=== PATIENT | female | born 1940 | race Hispanic/Latino ===

== ENCOUNTER → 2017-05-27 | Outpatient (CLI) | payer OTHER, MEDICARE ==
[~2017-05-27] MED LIST: BIOT10005 PO; CIPR-245 PO; ESCI20TA36 PO; METR500T4 PO; OMEP20TA25 PO; PRED5TAB PO; ROSU5TAB18 PO; TRAM-355 PO
== END | disposition home or self-care (01) ==
LOC: RAH 09:44
PROVIDERS: ATTEND Family Medicine
DX: Z12.31 Encounter for screening mammogram for malignant neoplasm of breast (principal)
CPT/HCPCS: 77067

== ENCOUNTER 2017-07-20 18:10 | Inpatient (IN) | payer OTHER, MEDICARE ==
[~2017-07-20] VITALS: Ht 157.5 cm; Wt 68.1 kg
[2017-07-20 18:37] LABS: BASOPHILS % (AUTO) 0.2 % (0.0-5.0); EOSINOPHILS % (AUTO) 0.2 % (0.0-8.0); HEMATOCRIT 43.5 % (36-48); MEAN CORPUSCULAR HEMOGLOBIN 31.7 pg (27.0-33.0); MEAN CORPUSCULAR HGB CONC 34.2 g/dL (32.0-36.0); MEAN CORPUSCULAR VOLUME 92.5 fL (79-99); MONOCYTES % (AUTO) 5.3 % (3.0-13.0); NEUTROPHILS % (AUTO) 86.3 % (40.0-77.0); NUCLEATED RED BLOOD CELLS 0.1 % (0.0-0.19); PLATELET COUNT (AUTO) 207 K/uL (130-400); RED CELL DISTRIBUTION WIDTH 12.7 % (11.0-15.5); WHITE BLOOD COUNT (AUTO) 13.2 K/uL (4.8-10.8)
[2017-07-20 18:46] LABS: POTASSIUM 4.3 mmol/L (3.5-5.1)
[2017-07-20] MEDS ORDERED: ONDANSETRON HCL 4 MG/2 ML VIAL ONE (18:47)
[2017-07-20] MEDS ORDERED: MORPHINE SULFATE 4 MG/1ML SYG ONE (18:47)
[2017-07-20 18:53] LABS: ALBUMIN 3.8 g/dL (3.5-5.0); BILIRUBIN,TOTAL 1.3 mg/dL (0.2-1.0); TOTAL PROTEIN, SERUM 7.4 g/dL (6.0-8.3)
[2017-07-20] MEDS ORDERED: KETOROLAC TROMETHAMINE 30MG/ML ONE (18:58)
[2017-07-20] MEDS ORDERED: IOPAMIDOL-370 75 ML VIAL IV ONE (19:16)
[2017-07-20 20:31] LABS: APPEARANCE,URINE Clear (CLEAR); BILIRUBIN,URINE Small (NEGATIVE); COLOR,URINE Dark Yellow (YELLOW); GLUCOSE, URINE (UA) 250 mg/dL (NEGATIVE); KETONES,URINE >=80 mg/dL (NEGATIVE); LEUKOCYTE ESTERASE ,URINE Small (NEGATIVE); NITRATE,URINE Negative (NEGATIVE); OCCULT BLOOD,URINE Negative (NEGATIVE); PROTEIN,URINE Trace (NEGATIVE)
[2017-07-20 20:42] LABS: BACTERIA,URINE None Seen /HPF (None Seen); MUCUS,URINE Moderate LPF (None Seen); RBC,URINE None Seen /HPF (0-1)
[2017-07-20] MEDS ORDERED: SODIUM CHLORIDE 0.9% 500ML 500 ML IV ONE (21:09)
[2017-07-20] MEDS ORDERED: ACETAMINOPHEN 325 MG TAB ONE (23:03)
[2017-07-21] MEDS ORDERED: ONDANSETRON HCL MDV 20ML 2 MG/ML VIAL IVP PRN (00:15)
[2017-07-21] MEDS ORDERED: GLUCAGON 1MG KIT 1 MG ML IM PRN (00:15)
[2017-07-21] MEDS ORDERED: DEXTROSE 50%-WATER 50 ML DISP.SYRIN IV PRN (00:15)
[2017-07-21] MEDS: SODIUM CHLORIDE 0.9% 1000ML 1,000 ML IV SCH ×2 (00:15→07:27)
[2017-07-21] MEDS ORDERED: LORAZEPAM 0.5 MG TABLET PO ONE (00:30)
[2017-07-21] MEDS ORDERED: LORAZEPAM 1 MG TABLET ONE (02:00)
[2017-07-21 05:01] LABS: BASOPHILS % (AUTO) 0.2 % (0.0-5.0); EOSINOPHILS % (AUTO) 0.8 % (0.0-8.0); HEMATOCRIT 39.5 % (36-48); LYMPHOCYTES % (AUTO) 17.2 % (21.0-51.0); MEAN CORPUSCULAR HEMOGLOBIN 32.8 pg (27.0-33.0); MEAN CORPUSCULAR HGB CONC 35.2 g/dL (32.0-36.0); MEAN CORPUSCULAR VOLUME 93.3 fL (79-99); MONOCYTES % (AUTO) 7.3 % (3.0-13.0); NEUTROPHILS % (AUTO) 74.5 % (40.0-77.0); PLATELET COUNT (AUTO) 194 K/uL (130-400); RED BLOOD CELL COUNT(AUTO) 4.23 MIL/uL (4.00-5.50); RED CELL DISTRIBUTION WIDTH 12.7 % (11.0-15.5); WHITE BLOOD COUNT (AUTO) 8.6 K/uL (4.8-10.8)
[2017-07-21 05:17] LABS: CREATININE 0.8 mg/dL (0.5-1.5); POTASSIUM 4.1 mmol/L (3.5-5.1)
[2017-07-21] MEDS ORDERED: MEROPENEM 500 MG VIAL ONE (05:52)
[2017-07-21] MEDS ORDERED: MEROPENEM 500MG+NS 50ML 50 ML IV SCH (06:00)
[2017-07-21] MEDS ORDERED: ENOXAPARIN SODIUM 40 MG/0.4 ML SYRINGE SQ ONE (07:21)
[2017-07-21] MEDS ORDERED: FAMOTIDINE 20MG TAB 20 MG TAB ONE (07:21)
[2017-07-21] MEDS: FAMOTIDINE 20MG TAB 20 MG TAB PO SCH (07:25)
[2017-07-21] MEDS: ENOXAPARIN SODIUM 40 MG/0.4 ML SYRINGE SQ SCH (07:26)
[2017-07-21] MEDS: INSULIN HUMULIN R 100 UNIT/ML 3ML SQ SCH ×4 (07:26→20:53)
[2017-07-21 07:50] VITALS: BP 117/61
[2017-07-21] MEDS ORDERED: ZOSYN 3.375GM+NS 50ML 50 ML IV SCH (10:15)
[2017-07-21] MEDS: KETOROLAC TROMETHAMINE 30MG/ML IM PRN ×3 (10:58→17:35)
[2017-07-21] MEDS ORDERED: KETOROLAC TROMETHAMINE 30MG/ML ONE (10:59)
[2017-07-21 14:20] VITALS: BP 105/55
[2017-07-21] MEDS ORDERED: LIDOCAINE HCL-MPF 1% 2ML VIAL IJ PRN (14:30)
[2017-07-21] MEDS ORDERED: POTASSIUM CHLORIDE 10% ELIXIR 20 MEQ/15 ML UDCUP PO PRN (14:30)
[2017-07-21] MEDS ORDERED: POTASSIUM CHLORIDE 20MEQ/100ML 100 ML IV PRN (14:30)
[2017-07-21] MEDS ORDERED: POTASSIUM CHLORIDE 20 MEQ ERTAB PO PRN (14:30)
[2017-07-21] MEDS ORDERED: ROSU5TAB11 PO (14:58)
[2017-07-21] MEDS ORDERED: PRED5TAB PO (14:58)
[2017-07-21] MEDS ORDERED: BIOT10005 PO (14:58)
[2017-07-21] MEDS ORDERED: TRAM-355 PO (14:58)
[2017-07-21] MEDS ORDERED: OMEP20TA25 PO (14:58)
[2017-07-21] MEDS ORDERED: ESCI20TA36 PO (14:58)
[2017-07-21] MEDS ORDERED: LEVOFLOXACIN 500 MG/D5W 100 ML 100 ML IV SCH (15:30)
[2017-07-21] MEDS ORDERED: LEVOFLOXACIN 500 MG/D5W 100 ML 100 ML ONE (15:52)
[2017-07-21 16:00] VITALS: BP 93/49
[2017-07-21] MEDS ORDERED: TRAMADOL /APAP 37.5MG/325MG TAB PO PRN (17:30)
[2017-07-21] MEDS: METRONIDAZOLE 500MG/100ML BAG 100 ML IV SCH (19:53)
[2017-07-21 20:00] VITALS: BP 104/64
[2017-07-21] MEDS ORDERED: ATORVASTATIN CALCIUM 10 MG TABLET PO SCH (21:00)
[2017-07-21] MEDS ORDERED: DIPHENHYDRAMINE HCL 25 MG CAPSULE ONE (22:21)
[2017-07-21] MEDS ORDERED: DIPHENHYDRAMINE HCL 25 MG CAPSULE PO SCH (22:30)
[2017-07-21 23:53] VITALS: BP 108/64
[2017-07-22] MEDS: SODIUM CHLORIDE 0.9% 1000ML 1,000 ML IV SCH (02:55)
[2017-07-22 04:00] VITALS: BP 102/56
[2017-07-22] MEDS: INSULIN HUMULIN R 100 UNIT/ML 3ML SQ SCH ×2 (05:55→11:30)
[2017-07-22 08:00] VITALS: BP 105/58
[2017-07-22] MEDS ORDERED: PANTOPRAZOLE SODIUM 40 MG TABLET.DR PO SCH (08:00)
[2017-07-22] MEDS ORDERED: CITALOPRAM 20 MG TABLET PO SCH (09:00)
[2017-07-22] MEDS ORDERED: PREDNISONE 5 MG TABLET PO SCH (09:00)
[2017-07-22] MEDS ORDERED: BIOTIN 10000 MCG PO SCH (09:00)
[2017-07-22] MEDS: METRONIDAZOLE 500MG/100ML BAG 100 ML IV SCH (09:23)
[2017-07-22] MEDS: ENOXAPARIN SODIUM 40 MG/0.4 ML SYRINGE SQ SCH (09:24)
[2017-07-22] MEDS: FAMOTIDINE 20MG TAB 20 MG TAB PO SCH (09:26)
[2017-07-22 11:48] VITALS: BP 103/63
[2017-07-22] MEDS ORDERED: CIPR-245 PO (14:20)
[2017-07-22] MEDS ORDERED: METR500T4 PO (14:21)
== END 2017-07-22 14:50 | disposition home or self-care (01) | DRG 392 ==
LOC: EDH 18:10 → EDHIP 21:39 → 3BH 07-21 14:13
PROVIDERS: ADMIT Internal Medicine Nephrology; ATTEND Internal Medicine Nephrology
DX: K57.92 Diverticulitis of intestine, part unspecified, without perforation or abscess without bleeding (principal); M32.9 Systemic lupus erythematosus, unspecified; E11.9 Type 2 diabetes mellitus without complications; Z79.4 Long term (current) use of insulin
CPT/HCPCS: 36415; 74177; 80048; 80053; 81001; 82948; 83690; 84478; 85025; J1650; J1885; J1956; J2185; J2270; J2405; J3490; J7040; J7512; Q0163; Q9967

== ENCOUNTER 2019-08-13 11:52 | Observation (INO) | payer OTHER, MEDICARE ==
[~2019-08-13] VITALS: Ht 152.4 cm; Wt 69.2 kg
[~2019-08-13 11:52] MED LIST changes: +METR-172 PO; -METR500T4 PO; +ROSU5TAB12 PO; -ROSU5TAB18 PO
[2019-08-13 12:29] LABS: BASOPHILS % (AUTO) 0.2 % (0.0-5.0); EOSINOPHILS % (AUTO) 2.3 % (0.0-8.0); LYMPHOCYTES % (AUTO) 30.4 % (21.0-51.0); MEAN CORPUSCULAR HGB CONC 33.3 g/dL (32.0-36.0); MEAN CORPUSCULAR VOLUME 92.9 fL (79-99); MONOCYTES % (AUTO) 8.6 % (3.0-13.0); PLATELET COUNT (AUTO) 148 K/uL (130-400); RED BLOOD CELL COUNT(AUTO) 4.52 MIL/uL (4.00-5.50); RED CELL DISTRIBUTION WIDTH 12.3 % (11.0-15.5); WHITE BLOOD COUNT (AUTO) 5.6 K/uL (4.8-10.8)
[2019-08-13 12:36] LABS: CREATININE 0.9 mg/dL (0.5-1.5); POTASSIUM 3.4 mmol/L (3.5-5.1)
[2019-08-13 12:37] LABS: INR 0.92 (0.85-1.15); PARTIAL THROMBOPLASTIN TIME 24.3 SEC (26.3-35.5)
[2019-08-13 12:43] LABS: ALBUMIN 3.6 g/dL (3.5-5.0); BILIRUBIN,TOTAL 0.8 mg/dL (0.2-1.0); TOTAL PROTEIN, SERUM 6.5 g/dL (6.0-8.3)
[2019-08-13 13:04] LABS: APPEARANCE,URINE Clear (CLEAR); BILIRUBIN,URINE Small (NEGATIVE); COLOR,URINE Dark Yellow (YELLOW); GLUCOSE, URINE (UA) Negative (NEGATIVE); KETONES,URINE Trace mg/dL (NEGATIVE); LEUKOCYTE ESTERASE ,URINE Small (NEGATIVE); NITRATE,URINE Negative (NEGATIVE); OCCULT BLOOD,URINE Negative (NEGATIVE); PH,URINE 5.5 (5.0-8.0); PROTEIN,URINE Trace mg/dL (NEGATIVE)
[2019-08-13 13:19] LABS: BACTERIA,URINE Rare /HPF (None Seen); RBC,URINE 0-1 /HPF (0-1); SQUAMOUS EPITHELIAL CELL,UR Rare /HPF (0-2)
[2019-08-13] MEDS ORDERED: ACETAMINOPHEN 325 MG TAB ONE (13:24)
[2019-08-13] MEDS ORDERED: IOHEXOL-350 75 ML VIAL IV ONE (13:33)
[2019-08-13] MEDS ORDERED: ZOSYN 3.375GM+NS 50ML 50 ML IV ONE (14:56)
[2019-08-13] MEDS ORDERED: SODIUM CHLORIDE 0.9% 100 ML IV ONE (17:11)
[2019-08-13] MEDS ORDERED: CEFTRIAXONE SODIUM 1 GM ONE (17:11)
[2019-08-13] MEDS ORDERED: DEXTROSE 50%-WATER 50 ML DISP.SYRIN IV PRN (17:45)
[2019-08-13] MEDS ORDERED: ONDANSETRON HCL 4 MG/2 ML VIAL IVP PRN (17:45)
[2019-08-13] MEDS ORDERED: GLUCAGON 1MG KIT 1 MG ML IM PRN (17:45)
[2019-08-13] MEDS ORDERED: CEFTRIAXONE SODIUM 1 GM IVP SCH (17:45)
[2019-08-13] MEDS ORDERED: MORPHINE SULFATE 4 MG/1ML SYG IVP PRN (17:45)
[2019-08-13 18:17] VITALS: BP 109/64
[2019-08-13] MEDS ORDERED: GABA-533 PO (18:23)
[2019-08-13] MEDS ORDERED: HYDR200T4 PO (18:32)
[2019-08-13] MEDS ORDERED: MIRT7.5T11 PO (18:33)
[2019-08-13 19:24] VITALS: BP 103/55
[2019-08-13] MEDS: INSULIN R PO SS1 SQ SCH (21:00)
--- NOTE | 2019-08-13 21:00 | NUR ---
ASSESS SHIFT ASSESSMENT DONE, PLEASE REFER TO CHART. PT ASKS FOR COFFEE, CLAIMS OF HAVING A HEADACHE. PROVIDED REQUESTED. WILL RE-ASSESS PT. Addendum: 08/14/19 at 0321 by KOJO TAYLOR RN RN Amended: Links added.
--- NOTE | 2019-08-13 22:50 | NUR ---
IVF PT IS BACK IN BED FROM RADIOLOGY. VQ SCAN DONE. STARTED ON IVF ON NS REGULATED AT 75CC/HR. PT CLAIMS OF HEADACHE WORSENING. REFUSED MORPHINE DOSE SHE CLAIMS SHE GETS TOVA WITH MORPHINE. CHIEF OPTOMETRY SERVICE ASSURED TO CALL MD FOR MEDS.
[2019-08-13] MEDS: SODIUM CHLORIDE 0.9% 1000ML 1,000 ML IV SCH (22:52)
[2019-08-13 23:14] VITALS: BP 112/63
--- NOTE | 2019-08-13 23:15 | NUR ---
[facility] PAGED MS DAY [facility] LEAD MAINTENANCE TECHNICIAN FOR [facility], VIA ANSWERING SERVICE. [facility] CALLED BACK AND REFERRED PT'S H/A. NEW MED ORDER GIVEN, PLEASE REFER TO CPOE. HOME MEDS GIVEN FROM PT'S OWN MEDS AT THIS TIME. MEDS STILL BEING VERIFIED BY RX. WILL RE-ASSESS PT.
[2019-08-13] MEDS ORDERED: ACETAMINOPHEN 325 MG TAB PO PRN (23:30)
[2019-08-13] MEDS ORDERED: TRAMADOL /APAP 37.5MG/325MG TAB PO PRN (23:30)
--- NOTE | 2019-08-14 01:50 | NUR ---
ROUNDS PT RESTING WELL. NO DISTRESS NOTED. KEPT COMFORTABLE IN BED. CALL LIGHT WITHIN REACH. WILL MONITOR PT.
[2019-08-14 03:55] VITALS: BP 94/54
[2019-08-14 05:09] LABS: BASOPHILS % (AUTO) 0.4 % (0.0-5.0); EOSINOPHILS % (AUTO) 3.1 % (0.0-8.0); HEMATOCRIT 36.4 % (36-48); LYMPHOCYTES % (AUTO) 32.7 % (21.0-51.0); MEAN CORPUSCULAR HEMOGLOBIN 31.1 pg (27.0-33.0); MEAN CORPUSCULAR HGB CONC 33.5 g/dL (32.0-36.0); MEAN CORPUSCULAR VOLUME 92.9 fL (79-99); MONOCYTES % (AUTO) 9.4 % (3.0-13.0); PLATELET COUNT (AUTO) 145 K/uL (130-400); RED BLOOD CELL COUNT(AUTO) 3.92 MIL/uL (4.00-5.50); RED CELL DISTRIBUTION WIDTH 12.3 % (11.0-15.5); WHITE BLOOD COUNT (AUTO) 5.1 K/uL (4.8-10.8)
[2019-08-14 05:12] LABS: HEMOGLOBIN A1C 7.9 % (4.0-6.0)
[2019-08-14 05:24] LABS: INR 0.93 (0.85-1.15); PARTIAL THROMBOPLASTIN TIME 25.4 SEC (26.3-35.5); PROTHROMBIN TIME 10.1 SEC (9.6-11.6)
[2019-08-14 05:28] LABS: CREATININE 0.9 mg/dL (0.5-1.5); POTASSIUM 3.6 mmol/L (3.5-5.1)
--- NOTE | 2019-08-14 05:30 | NUR ---
SHOWER PT REQUESTED TO SHOWER. PT DENIES ANY PAINS NOR DISCOMFORT AT THIS TIME. SALINE LOCKED PT. PCP ASSISTED PT TO SHOWER, TOLERATED ACTIVITY WELL.
[2019-08-14] MEDS: INSULIN R PO SS1 SQ SCH ×3 (05:57→16:25)
[2019-08-14 08:36] VITALS: BP 95/55
[2019-08-14] MEDS ORDERED: CITALOPRAM 20 MG TABLET PO SCH (09:00)
[2019-08-14] MEDS ORDERED: HYDROXYCHLOROQUINE SULFATE 200 MG TAB PO SCH (09:00)
--- NOTE | 2019-08-14 11:19 | NUR ---
CHART REVIEWED, [facility] UPLOADED, CONTACT DR. HENDERSON RE: CT RESULT/ DOCUMENTATION. CONTACTED TA PRIMARY NURSE RE NOTE THAT FROM [facility] THAT STATES TO START STEROIDS WHEN AVAILABLE. CM TO FOLLOW Addendum: 08/14/19 at 1122 by SONA BURNS RN CM Amended: Links added.
[2019-08-14] MEDS: SODIUM CHLORIDE 0.9% 1000ML 1,000 ML IV SCH (11:39)
--- NOTE | 2019-08-14 12:27 | NUR ---
DCP CM met with pt discussed dc plans. Pt is independent prior to admission, lives at home with spouse and son. Pt has a nebulizer machine. Denies any other equipments/services. Feels safe to go back home, son able to assist with transportation and needs as necesary. DC plan to home once stable. Addendum: 08/14/19 at 1229 by GAMAL LUI LVN CM Amended: Links added.
[2019-08-14] MEDS ORDERED: CIPR250S5 PO (15:50)
[2019-08-14 17:15] VITALS: BP 110/63
--- NOTE | 2019-08-14 17:15 | NUR ---
INSTRUCTIONS DISCHARGE INSTRUCTIONS GIVEN TO PATIENT USING TEACH BACK. NEW ANTIBIOTIC ELECTRONICALLY SENT TO PATIENT'S PREFERRED PHARMACY BY MD. ALL PRINTED INFORMATION AND MD INSTRUCTIONS PLACED IN DISCHARGE PACKET. IV WAS REMOVED WITH TIP INTACT. DIRECT PRESSURE WAS APPLIED UNTIL BLEEDING CONTROLLED THEN SITE COVERED WITH GAUZE AND SECURED WITH A BAND-AID. F/U APPOINTMENT WITH [facility] WAS MADE, BUT AN APPOINTMENT WITH HER PRIMARY WAS NOT MADE BY NURSE D/T TO NO ONE ANSWERING THE PHONE. PATIENT STATES THAT SHE WILL CALL THE OFFICE IN THE MORNING TO SET UP HER OWN APPOINTMENT. NO QUESTIONS OR CONCERNS VOICED. PENDING RIDE HOME.
[2019-08-14] MEDS ORDERED: MIRTAZAPINE 15 MG TABLET PO SCH (21:00)
[2019-08-14] MEDS ORDERED: GABAPENTIN 100 MG CAPSULE PO SCH (21:00)
== END 2019-08-14 17:25 | disposition home or self-care (01) ==
LOC: EDH 11:52 → EDHIP 16:39 → 3CH 17:56
PROVIDERS: ADMIT Internal Medicine Pulmonary Disease; ATTEND Internal Medicine Pulmonary Disease
DX: E86.9 Volume depletion, unspecified (principal); N39.0 Urinary tract infection, site not specified; E11.9 Type 2 diabetes mellitus without complications; E78.00 Pure hypercholesterolemia, unspecified; L93.0 Discoid lupus erythematosus; R06.02 Shortness of breath; I10 Essential (primary) hypertension; Z79.4 Long term (current) use of insulin; Z90.49 Acquired absence of other specified parts of digestive tract; Z87.891 Personal history of nicotine dependence
CPT/HCPCS: 36415 ×2; 71045; 71250; 74177; 78582; 80048; 80053; 80061; 81001; 82550; 82948 ×4; 83036; 83690; 83735; 83880; 84484; 85025 ×2; 85610 ×2; 85730 ×2; 87040 ×2; 87077; 87088; 87186; 87804 ×2; 93005; 93306; 93356; 93970; 96360; 96361; 99285; A9540; A9558; G0378 ×9; J0696; J2270; J2543; J7030; Q9967

== ENCOUNTER 2019-08-22 16:52 | Emergency (ER) | payer OTHER, MEDICARE ==
[~2019-08-22 16:52] MED LIST changes: -BIOT10005 PO; -CIPR-245 PO; +CIPR250S5 PO; +GABA-533 PO; +HYDR200T4 PO; -METR-172 PO; +MIRT7.5T11 PO; -OMEP20TA25 PO; -PRED5TAB PO; -ROSU5TAB12 PO
[2019-08-22 17:42] LABS: BASOPHILS % (AUTO) 0.6 % (0.0-5.0); EOSINOPHILS % (AUTO) 3.9 % (0.0-8.0); HEMATOCRIT 38.6 % (36-48); LYMPHOCYTES % (AUTO) 33.5 % (21.0-51.0); MEAN CORPUSCULAR HEMOGLOBIN 30.7 pg (27.0-33.0); MEAN CORPUSCULAR HGB CONC 33.4 g/dL (32.0-36.0); MEAN CORPUSCULAR VOLUME 91.9 fL (79-99); MONOCYTES % (AUTO) 9.8 % (3.0-13.0); PLATELET COUNT (AUTO) 180 K/uL (130-400); RED CELL DISTRIBUTION WIDTH 12.2 % (11.0-15.5); WHITE BLOOD COUNT (AUTO) 5.1 K/uL (4.8-10.8)
[2019-08-22 17:54] LABS: CREATININE 0.8 mg/dL (0.5-1.5); POTASSIUM 3.7 mmol/L (3.5-5.1)
== END 2019-08-22 20:18 | disposition home or self-care (01) ==
LOC: EDH 16:52
DX: S00.03XA Contusion of scalp, initial encounter (principal); E11.9 Type 2 diabetes mellitus without complications; E78.00 Pure hypercholesterolemia, unspecified; M32.9 Systemic lupus erythematosus, unspecified; Z90.49 Acquired absence of other specified parts of digestive tract; W18.09XA Striking against other object with subsequent fall, initial encounter; Y93.89 Activity, other specified; Y92.89 Other specified places as the place of occurrence of the external cause; Y99.8 Other external cause status
CPT/HCPCS: 36415; 70450; 80048; 85025; 93005

== ENCOUNTER → 2020-09-04 | Outpatient (CLI) | payer OTHER, MEDICARE ==
[~2020-09-04] MED LIST changes: -ESCI20TA36 PO; +ESCI20TA38 PO
== END | disposition home or self-care (01) ==
LOC: OIH 11:29
PROVIDERS: ATTEND Internal Medicine
DX: M47.816 Spondylosis without myelopathy or radiculopathy, lumbar region (principal); M51.37 Other intervertebral disc degeneration, lumbosacral region; M48.07 Spinal stenosis, lumbosacral region
CPT/HCPCS: 72100

== ENCOUNTER 2021-02-10 08:00 | Inpatient (IN) | payer OTHER, MEDICARE ==
[~2021-02-10] VITALS: Ht 157.5 cm; Wt 45.4 kg
[2021-02-11 10:51] LABS: BASOPHILS % (AUTO) 0.4 % (0.0-5.0); EOSINOPHILS % (AUTO) 4.9 % (0.0-8.0); HEMATOCRIT 38.8 % (36-48); MEAN CORPUSCULAR HEMOGLOBIN 30.6 pg (27.0-33.0); MEAN CORPUSCULAR HGB CONC 33.2 g/dL (32.0-36.0); MEAN CORPUSCULAR VOLUME 92.2 fL (79-99); MONOCYTES % (AUTO) 7.1 % (3.0-13.0); NEUTROPHILS % (AUTO) 58.2 % (40.0-77.0); PLATELET COUNT (AUTO) 186 K/uL (130-400); RED BLOOD CELL COUNT(AUTO) 4.21 MIL/uL (4.00-5.50); RED CELL DISTRIBUTION WIDTH 11.6 % (11.0-15.5); WHITE BLOOD COUNT (AUTO) 5.7 K/uL (4.8-10.8)
[2021-02-11 10:58] LABS: ABG BASE EXCESS -1.9 mmol/L (-2.0-3.0); ABG HCO3 22.4 mmol/L (21.0-28.0); ABG PCO2 37 mmHg (32-45)
[2021-02-11 11:01] LABS: CREATININE 0.7 mg/dL (0.5-1.5); POTASSIUM 3.7 mmol/L (3.5-5.1)
[2021-02-11 11:17] VITALS: BP 158/77
[2021-02-11 11:51] LABS: INR 0.99 (0.85-1.15); PROTHROMBIN TIME 10.8 SEC (9.6-11.6)
[2021-02-11 11:52] LABS: PARTIAL THROMBOPLASTIN TIME 27.6 SEC (26.3-35.5)
[2021-02-11] MEDS ORDERED: BACL10TA PO (13:39)
[2021-02-11] MEDS ORDERED: MIDO10TA PO (13:39)
[2021-02-11] MEDS ORDERED: RIFA300C4 PO (13:39)
[2021-02-11] MEDS ORDERED: ACET-2743 PO (13:39)
[2021-02-11] MEDS ORDERED: PRED5TAB PO (13:39)
[2021-02-11] MEDS ORDERED: PREG75 PO (13:39)
[2021-02-11] MEDS ORDERED: DICL75TA5 PO (13:39)
[2021-02-11] MEDS ORDERED: LEVO500T90 PO (13:39)
[2021-02-11] MEDS ORDERED: HYDR200T4 PO (13:39)
[2021-02-11] MEDS ORDERED: ESCI20TA38 PO (13:39)
[2021-02-11] MEDS ORDERED: AZIT500T4 PO (13:39)
[2021-02-11] MEDS ORDERED: FLUD0.1T2 PO (13:39)
[2021-02-11] MEDS ORDERED: ROSU5TAB12 PO (13:39)
[2021-02-11] MEDS ORDERED: DULA0.75 SQ (13:39)
[2021-02-11] MEDS ORDERED: TRAM50TA4 PO (13:39)
[2021-02-11] MEDS ORDERED: MIRT7.5T11 PO (13:39)
[2021-02-11] MEDS ORDERED: PANT40TA54 PO (13:39)
[2021-02-11] MEDS ORDERED: ALPR0.255 PO (13:39)
[2021-02-16] VITALS (14 sets, daily range): BP systolic 86–142; BP diastolic 38–66
[2021-02-16] MEDS ORDERED: CEFAZOLIN SODIUM 1 GM VIAL ONE ×2 (06:46→09:54)
[2021-02-16] MEDS ORDERED: LACTATED RINGERS 1000ML 1,000 ML IV ONE (06:46)
[2021-02-16] MEDS ORDERED: 0.9%NACL 1000ML 1,000 ML IV ONE (07:12)
[2021-02-16] MEDS ORDERED: HEPARIN 10,000 UNIT/10ML (1,000 UNIT/ML) VIAL ONE (08:33)
[2021-02-16] MEDS ORDERED: LIDOCAINE PF 100MG/5ML (2%) SYRINGE 5ML ONE (08:33)
[2021-02-16] MEDS ORDERED: NOREPINEPHRINE BITARTRATE 1 MG/1 ML ML IV ONE ×2 (08:33→10:17)
[2021-02-16] MEDS ORDERED: AMINOCAPROIC ACID 5,000MG VIAL ONE (08:33)
[2021-02-16] MEDS ORDERED: ESMOLOL HCL 10 MG/ML 10 ML VIAL ONE (08:33)
[2021-02-16] MEDS ORDERED: PROTAMINE SULFATE 10 MG/ML 25ML VIAL IV ONE (08:33)
[2021-02-16] MEDS ORDERED: EPINEPHRINE PF 1MG AMP ONE (08:33)
[2021-02-16] MEDS ORDERED: ROCURONIUM 10MG/1ML SYR 10 MG/ML ML ONE (08:34)
[2021-02-16] MEDS ORDERED: FENTANYL CITRATE PF 50 MCG/1 ML 20ML VIAL IJ ONE (08:34)
[2021-02-16] MEDS ORDERED: PROPOFOL 10 MG/ML 20ML VIAL IV ONE (08:34)
[2021-02-16] MEDS ORDERED: MIDAZOLAM HCL 1 MG/ML 2ML VIAL ONE (08:34)
[2021-02-16 09:27] LABS: ABG BASE EXCESS -0.7 mmol/L (-2.0-3.0); ABG HCO3 23.1 mmol/L (21.0-28.0); ABG OXYGEN SATURATION 99.4 % (95.0-99.0); ABG PCO2 35 mmHg (32-45)
[2021-02-16] MEDS ORDERED: EPHEDRINE SULFATE 50 MG/ML AMPULE ONE (09:48)
[2021-02-16] MEDS ORDERED: LIDOCAINE HCL 1% 20 ML VIAL ONE (09:57)
[2021-02-16] MEDS ORDERED: BUPIVACAINE/PF 0.5% 30ML VIAL ONE (09:57)
[2021-02-16] MEDS ORDERED: DEXTROSE 50%-WATER 50 ML DISP.SYRIN IV PRN (10:00)
[2021-02-16] MEDS ORDERED: GLUCAGON 1MG KIT 1 MG ML IM PRN (10:00)
[2021-02-16] MEDS ORDERED: MORPHINE 2 MG SYG IVP PRN (10:00)
[2021-02-16] MEDS ORDERED: DEXAMETHASONE SOD PHOSPHATE 10MG/ML 1ML VIAL ONE (10:44)
[2021-02-16] MEDS ORDERED: ALBUTEROL INHALER 90MCG/INH IH ONE (10:45)
[2021-02-16] MEDS ORDERED: GLYCOPYRROLATE 1 MG/5 ML SYRINGE ONE (10:52)
[2021-02-16] MEDS ORDERED: NEOSTIGMINE 5MG/5ML SYR IV ONE (10:52)
[2021-02-16] MEDS: MORPHINE 2 MG SYG IVP PRN ×4 (11:26→23:28)
[2021-02-16] MEDS: INSULIN HUMULIN R 100 UNIT/ML 3ML SQ SCH ×3 (11:30→21:00)
[2021-02-16] MEDS ORDERED: ONDANSETRON 4MG INJ ONE (11:44)
[2021-02-16] MEDS: TRAMADOL HCL 50 MG TABLET PO PRN (11:59)
[2021-02-16] MEDS: FLUDROCORTISONE ACETATE 0.1 MG TABLET PO SCH (12:00)
[2021-02-16 12:12] LABS: HEMATOCRIT 34.6 % (36-48); MEAN CORPUSCULAR HEMOGLOBIN 30.4 pg (27.0-33.0); MEAN CORPUSCULAR HGB CONC 32.4 g/dL (32.0-36.0); MEAN CORPUSCULAR VOLUME 93.8 fL (79-99); RED BLOOD CELL COUNT(AUTO) 3.69 MIL/uL (4.00-5.50); RED CELL DISTRIBUTION WIDTH 11.6 % (11.0-15.5); WHITE BLOOD COUNT (AUTO) 10.8 K/uL (4.8-10.8)
[2021-02-16 12:26] LABS: CREATININE 0.8 mg/dL (0.5-1.5); POTASSIUM 3.6 mmol/L (3.5-5.1)
[2021-02-16] MEDS: KETOROLAC 15MG/ML VIAL (15MG/ML) IV PRN ×3 (12:51→21:35)
[2021-02-16] MEDS ORDERED: 0.9% NACL 500ML IV.SOLN 500 ML IV SCH (13:00)
[2021-02-16] MEDS ORDERED: ALBUMIN (HUMAN) 5% 250 ML IV SCH (13:00)
[2021-02-16] MEDS: MIDODRINE HCL 5 MG TABLET PO SCH ×2 (16:06→20:04)
[2021-02-16] MEDS: ATORVASTATIN 10 MG TABLET PO SCH (20:00)
[2021-02-16] MEDS: BACLOFEN 10 MG TABLET PO SCH (20:00)
[2021-02-16] MEDS: ALPRAZOLAM 0.25 MG TABLET PO SCH (20:00)
[2021-02-16] MEDS: HYDROXYCHLOROQUINE SULFATE 200 MG TAB PO SCH (20:00)
[2021-02-16] MEDS: PREDNISONE 5 MG TABLET PO SCH (20:00)
[2021-02-16] MEDS: PREGABALIN 75 MG CAPSULE PO SCH (20:00)
[2021-02-16] MEDS: CITALOPRAM 20 MG TABLET PO SCH (20:00)
[2021-02-16] MEDS: LEVOFLOXACIN 500 MG TABLET PO SCH (20:00)
[2021-02-16] MEDS: MIRTAZAPINE 15 MG TABLET PO SCH (20:04)
[2021-02-16] MEDS ORDERED: DOPAMINE HCL 400 MG/D5%-WATER 250 ML IV PRN (20:30)
[2021-02-16] MEDS: **HM** DICLOFENAC 75MG PO SCH (21:00)
[2021-02-16] MEDS: RIFAMPIN 300 MG CAPSULE PO SCH (21:45)
[2021-02-17] VITALS (23 sets, daily range): BP systolic 88–129; BP diastolic 41–63
[2021-02-17] MEDS: KETOROLAC 15MG/ML VIAL (15MG/ML) IV PRN ×3 (00:40→22:15)
[2021-02-17] MEDS: TRAMADOL HCL 50 MG TABLET PO PRN ×4 (00:46→21:06)
[2021-02-17 03:36] LABS: HEMATOCRIT 32.4 % (36-48); MEAN CORPUSCULAR VOLUME 91.3 fL (79-99); RED BLOOD CELL COUNT(AUTO) 3.55 MIL/uL (4.00-5.50); RED CELL DISTRIBUTION WIDTH 11.5 % (11.0-15.5); WHITE BLOOD COUNT (AUTO) 7.9 K/uL (4.8-10.8)
[2021-02-17 03:43] LABS: CREATININE 0.8 mg/dL (0.5-1.5); INR 1.02 (0.85-1.15); POTASSIUM 4.2 mmol/L (3.5-5.1); PROTHROMBIN TIME 11.1 SEC (9.6-11.6)
[2021-02-17 03:44] LABS: PARTIAL THROMBOPLASTIN TIME 29.4 SEC (26.3-35.5)
[2021-02-17] MEDS ORDERED: ONDANSETRON 4MG INJ ONE ×2 (04:24→21:22)
[2021-02-17] MEDS: INSULIN HUMULIN R 100 UNIT/ML 3ML SQ SCH ×4 (06:58→20:16)
[2021-02-17] MEDS: PANTOPRAZOLE 40 MG TAB DR PO SCH (07:56)
[2021-02-17] MEDS: PREGABALIN 75 MG CAPSULE PO SCH ×2 (07:56→20:05)
[2021-02-17] MEDS: AZITHROMYCIN 250 MG TABLET PO SCH (07:56)
[2021-02-17] MEDS: ALPRAZOLAM 0.25 MG TABLET PO SCH ×2 (07:56→20:05)
[2021-02-17] MEDS: RIFAMPIN 300 MG CAPSULE PO SCH ×2 (07:57→20:05)
[2021-02-17] MEDS: **HM** DICLOFENAC 75MG PO SCH ×2 (09:00→20:06)
[2021-02-17] MEDS: MIDODRINE HCL 5 MG TABLET PO SCH ×3 (09:30→21:06)
[2021-02-17] MEDS: FLUDROCORTISONE ACETATE 0.1 MG TABLET PO SCH (13:48)
[2021-02-17 14:35] LABS: CREATININE 0.8 mg/dL (0.5-1.5); POTASSIUM 3.7 mmol/L (3.5-5.1)
[2021-02-17] MEDS: DEXTROSE 5 % AND 0.9 % NACL 1,000 ML IV SCH (16:30)
[2021-02-17] MEDS: MIRTAZAPINE 15 MG TABLET PO SCH (20:05)
[2021-02-17] MEDS: LEVOFLOXACIN 500 MG TABLET PO SCH (20:05)
[2021-02-17] MEDS: PREDNISONE 5 MG TABLET PO SCH (20:05)
[2021-02-17] MEDS: HYDROXYCHLOROQUINE SULFATE 200 MG TAB PO SCH (20:05)
[2021-02-17] MEDS: BACLOFEN 10 MG TABLET PO SCH (20:05)
[2021-02-17] MEDS: ATORVASTATIN 10 MG TABLET PO SCH (20:05)
[2021-02-17] MEDS: CITALOPRAM 20 MG TABLET PO SCH (20:05)
[2021-02-17] MEDS: ACETAMINOPHEN 325 MG TAB PO PRN (22:16)
[2021-02-18] VITALS (11 sets, daily range): BP systolic 86–145; BP diastolic 43–70
[2021-02-18 04:21] LABS: HEMATOCRIT 28.3 % (36-48); MEAN CORPUSCULAR HGB CONC 32.5 g/dL (32.0-36.0); MEAN CORPUSCULAR VOLUME 92.2 fL (79-99); RED BLOOD CELL COUNT(AUTO) 3.07 MIL/uL (4.00-5.50); RED CELL DISTRIBUTION WIDTH 11.6 % (11.0-15.5); WHITE BLOOD COUNT (AUTO) 6.3 K/uL (4.8-10.8)
[2021-02-18 04:38] LABS: CREATININE 0.7 mg/dL (0.5-1.5); POTASSIUM 3.6 mmol/L (3.5-5.1)
[2021-02-18] MEDS: ACETAMINOPHEN 325 MG TAB PO PRN (05:40)
[2021-02-18] MEDS: INSULIN HUMULIN R 100 UNIT/ML 3ML SQ SCH ×4 (05:58→20:23)
[2021-02-18] MEDS: **HM** DICLOFENAC 75MG PO SCH ×2 (09:00→20:24)
[2021-02-18] MEDS: ALPRAZOLAM 0.25 MG TABLET PO SCH ×2 (10:20→20:22)
[2021-02-18] MEDS: PREGABALIN 75 MG CAPSULE PO SCH ×2 (10:20→20:23)
[2021-02-18] MEDS: MIDODRINE HCL 5 MG TABLET PO SCH ×3 (10:20→20:23)
[2021-02-18] MEDS: PANTOPRAZOLE 40 MG TAB DR PO SCH (10:20)
[2021-02-18] MEDS: RIFAMPIN 300 MG CAPSULE PO SCH ×2 (10:20→20:23)
[2021-02-18] MEDS: AZITHROMYCIN 250 MG TABLET PO SCH (10:20)
[2021-02-18] MEDS: TAMSULOSIN HCL 0.4 MG CAP.ER.24H PO SCH (10:20)
[2021-02-18] MEDS: KETOROLAC 15MG/ML VIAL (15MG/ML) IV PRN (10:24)
[2021-02-18] MEDS: TRAMADOL HCL 50 MG TABLET PO PRN ×3 (10:25→22:10)
[2021-02-18] MEDS: DEXTROSE 5 % AND 0.9 % NACL 1,000 ML IV SCH (13:56)
[2021-02-18] MEDS: FLUDROCORTISONE ACETATE 0.1 MG TABLET PO SCH (13:56)
[2021-02-18] MEDS: LEVOFLOXACIN 500 MG TABLET PO SCH (20:22)
[2021-02-18] MEDS: MIRTAZAPINE 15 MG TABLET PO SCH (20:22)
[2021-02-18] MEDS: HYDROXYCHLOROQUINE SULFATE 200 MG TAB PO SCH (20:22)
[2021-02-18] MEDS: ATORVASTATIN 10 MG TABLET PO SCH (20:22)
[2021-02-18] MEDS: BACLOFEN 10 MG TABLET PO SCH (20:22)
[2021-02-18] MEDS: CITALOPRAM 20 MG TABLET PO SCH (20:23)
[2021-02-18] MEDS: PREDNISONE 5 MG TABLET PO SCH (20:23)
[2021-02-19] VITALS: BP 115/56
[2021-02-19 03:27] LABS: HEMATOCRIT 28.9 % (36-48); MEAN CORPUSCULAR HGB CONC 33.9 g/dL (32.0-36.0); MEAN CORPUSCULAR VOLUME 88.4 fL (79-99); RED BLOOD CELL COUNT(AUTO) 3.27 MIL/uL (4.00-5.50); RED CELL DISTRIBUTION WIDTH 11.4 % (11.0-15.5); WHITE BLOOD COUNT (AUTO) 4.9 K/uL (4.8-10.8)
[2021-02-19 03:37] LABS: CREATININE 0.5 mg/dL (0.5-1.5); POTASSIUM 3.4 mmol/L (3.5-5.1)
[2021-02-19] MEDS: INSULIN HUMULIN R 100 UNIT/ML 3ML SQ SCH ×4 (06:09→20:19)
[2021-02-19 07:00] VITALS: BP 132/61
[2021-02-19] MEDS: **HM** DICLOFENAC 75MG PO SCH ×2 (09:00→20:18)
[2021-02-19] MEDS: RIFAMPIN 300 MG CAPSULE PO SCH ×2 (09:57→20:17)
[2021-02-19] MEDS: TAMSULOSIN HCL 0.4 MG CAP.ER.24H PO SCH (09:57)
[2021-02-19] MEDS: PREGABALIN 75 MG CAPSULE PO SCH ×2 (09:57→20:17)
[2021-02-19] MEDS: PANTOPRAZOLE 40 MG TAB DR PO SCH (09:57)
[2021-02-19] MEDS: ALPRAZOLAM 0.25 MG TABLET PO SCH ×2 (09:57→20:17)
[2021-02-19] MEDS: DEXTROSE 5 % AND 0.9 % NACL 1,000 ML IV SCH (09:58)
[2021-02-19] MEDS: AZITHROMYCIN 250 MG TABLET PO SCH (09:58)
[2021-02-19] MEDS: MIDODRINE HCL 5 MG TABLET PO SCH ×3 (10:07→20:28)
[2021-02-19 11:00] VITALS: BP 107/59
[2021-02-19] MEDS ORDERED: ONDANSETRON 4MG INJ ONE (11:33)
[2021-02-19] MEDS: FLUDROCORTISONE ACETATE 0.1 MG TABLET PO SCH (11:34)
[2021-02-19 16:00] VITALS: BP 118/58
[2021-02-19] MEDS: TRAMADOL HCL 50 MG TABLET PO PRN (18:20)
[2021-02-19 19:49] VITALS: BP 126/72
[2021-02-19] MEDS: ATORVASTATIN 10 MG TABLET PO SCH (20:16)
[2021-02-19] MEDS: CITALOPRAM 20 MG TABLET PO SCH (20:16)
[2021-02-19] MEDS: LEVOFLOXACIN 500 MG TABLET PO SCH (20:17)
[2021-02-19] MEDS: MIRTAZAPINE 15 MG TABLET PO SCH (20:17)
[2021-02-19] MEDS: BACLOFEN 10 MG TABLET PO SCH (20:17)
[2021-02-19] MEDS: HYDROXYCHLOROQUINE SULFATE 200 MG TAB PO SCH (20:17)
[2021-02-19] MEDS: PREDNISONE 5 MG TABLET PO SCH (20:17)
[2021-02-19] MEDS: ACETAMINOPHEN 325 MG TAB PO PRN (20:30)
[2021-02-19 23:20] VITALS: BP 111/59
[2021-02-20] MEDS: DEXTROSE 5 % AND 0.9 % NACL 1,000 ML IV SCH (02:59)
[2021-02-20] MEDS: KETOROLAC 15MG/ML VIAL (15MG/ML) IV PRN ×2 (03:45→19:15)
[2021-02-20 04:28] LABS: BASOPHILS % (AUTO) 0.3 % (0.0-5.0); EOSINOPHILS % (AUTO) 4.3 % (0.0-8.0); HEMATOCRIT 28.5 % (36-48); LYMPHOCYTES % (AUTO) 25.8 % (21.0-51.0); MEAN CORPUSCULAR HEMOGLOBIN 30.2 pg (27.0-33.0); MEAN CORPUSCULAR HGB CONC 33.7 g/dL (32.0-36.0); MEAN CORPUSCULAR VOLUME 89.6 fL (79-99); MONOCYTES % (AUTO) 11.3 % (3.0-13.0); PLATELET COUNT (AUTO) 174 K/uL (130-400); RED BLOOD CELL COUNT(AUTO) 3.18 MIL/uL (4.00-5.50); RED CELL DISTRIBUTION WIDTH 11.2 % (11.0-15.5)
[2021-02-20 04:33] VITALS: BP 101/38
[2021-02-20 04:43] LABS: ALBUMIN 2.4 g/dL (3.5-5.0); BILIRUBIN,TOTAL 0.9 mg/dL (0.2-1.0); CREATININE 0.6 mg/dL (0.5-1.5); POTASSIUM 3.2 mmol/L (3.5-5.1); TOTAL PROTEIN, SERUM 6.1 g/dL (6.0-8.3)
[2021-02-20] MEDS: TRAMADOL HCL 50 MG TABLET PO PRN ×2 (05:23→20:31)
[2021-02-20] MEDS: INSULIN HUMULIN R 100 UNIT/ML 3ML SQ SCH ×4 (07:30→21:00)
[2021-02-20 08:30] VITALS: BP 121/62
[2021-02-20] MEDS: **HM** DICLOFENAC 75MG PO SCH ×2 (09:00→21:00)
[2021-02-20] MEDS: ALPRAZOLAM 0.25 MG TABLET PO SCH ×2 (10:43→20:32)
[2021-02-20] MEDS: PANTOPRAZOLE 40 MG TAB DR PO SCH (10:43)
[2021-02-20] MEDS: TAMSULOSIN HCL 0.4 MG CAP.ER.24H PO SCH (10:43)
[2021-02-20] MEDS: METOCLOPRAMIDE 10 MG/2 ML VIAL IVP SCH ×3 (10:43→17:33)
[2021-02-20] MEDS: RIFAMPIN 300 MG CAPSULE PO SCH ×2 (10:43→21:19)
[2021-02-20] MEDS: PREGABALIN 75 MG CAPSULE PO SCH ×2 (10:43→20:31)
[2021-02-20] MEDS: MIDODRINE HCL 5 MG TABLET PO SCH ×3 (10:55→20:32)
[2021-02-20] MEDS: AZITHROMYCIN 250 MG TABLET PO SCH (10:56)
[2021-02-20] MEDS: ACETAMINOPHEN 325 MG TAB PO PRN ×2 (11:25→21:28)
[2021-02-20 12:29] VITALS: BP 152/56
[2021-02-20 16:30] VITALS: BP 89/65
[2021-02-20] MEDS: D5 NS WITH 20 mEq KCl 1000ML 1,000 ML IV SCH (17:32)
[2021-02-20] MEDS: FLUDROCORTISONE ACETATE 0.1 MG TABLET PO SCH (17:36)
[2021-02-20 19:51] VITALS: BP 130/62
[2021-02-20] MEDS: MIRTAZAPINE 15 MG TABLET PO SCH (21:18)
[2021-02-20] MEDS: BACLOFEN 10 MG TABLET PO SCH (21:18)
[2021-02-20] MEDS: HYDROXYCHLOROQUINE SULFATE 200 MG TAB PO SCH (21:19)
[2021-02-20] MEDS: PREDNISONE 5 MG TABLET PO SCH (21:19)
[2021-02-20] MEDS: ATORVASTATIN 10 MG TABLET PO SCH (21:19)
[2021-02-20] MEDS: LEVOFLOXACIN 500 MG TABLET PO SCH (21:19)
[2021-02-20] MEDS: CITALOPRAM 20 MG TABLET PO SCH (21:19)
[2021-02-20 23:30] VITALS: BP 101/54
[2021-02-21 03:55] LABS: BASOPHILS % (AUTO) 0.2 % (0.0-5.0); EOSINOPHILS % (AUTO) 0.2 % (0.0-8.0); HEMATOCRIT 28.1 % (36-48); LYMPHOCYTES % (AUTO) 12.4 % (21.0-51.0); MEAN CORPUSCULAR HEMOGLOBIN 30.1 pg (27.0-33.0); MEAN CORPUSCULAR HGB CONC 34.2 g/dL (32.0-36.0); MEAN CORPUSCULAR VOLUME 88.1 fL (79-99); NEUTROPHILS % (AUTO) 80.8 % (40.0-77.0); PLATELET COUNT (AUTO) 192 K/uL (130-400); RED BLOOD CELL COUNT(AUTO) 3.19 MIL/uL (4.00-5.50); RED CELL DISTRIBUTION WIDTH 11.4 % (11.0-15.5); WHITE BLOOD COUNT (AUTO) 5.5 K/uL (4.8-10.8)
[2021-02-21 04:00] VITALS: BP 94/50
[2021-02-21 04:10] LABS: CREATININE 0.7 mg/dL (0.5-1.5); POTASSIUM 3.7 mmol/L (3.5-5.1)
[2021-02-21] MEDS: METOCLOPRAMIDE 10 MG/2 ML VIAL IVP SCH ×3 (06:46→17:27)
[2021-02-21] MEDS: ACETAMINOPHEN 325 MG TAB PO PRN ×3 (06:47→20:44)
[2021-02-21] MEDS: INSULIN HUMULIN R 100 UNIT/ML 3ML SQ SCH ×4 (06:48→21:36)
[2021-02-21 08:40] VITALS: BP 100/46
[2021-02-21] MEDS: **HM** DICLOFENAC 75MG PO SCH ×2 (09:00→19:56)
[2021-02-21] MEDS: D5 NS WITH 20 mEq KCl 1000ML 1,000 ML IV SCH (09:30)
[2021-02-21] MEDS: 0.9% NACL 500ML IV.SOLN 500 ML IV SCH ×3 (10:00→11:00)
[2021-02-21] MEDS: ALPRAZOLAM 0.25 MG TABLET PO SCH ×2 (10:00→20:46)
[2021-02-21] MEDS: ZOSYN 3.375GM +NS 50ML IV SCH ×3 (10:00→20:49)
[2021-02-21] MEDS: AZITHROMYCIN 250 MG TABLET PO SCH (10:01)
[2021-02-21] MEDS: TAMSULOSIN HCL 0.4 MG CAP.ER.24H PO SCH (10:01)
[2021-02-21] MEDS: PANTOPRAZOLE 40 MG TAB DR PO SCH (10:01)
[2021-02-21] MEDS: PREGABALIN 75 MG CAPSULE PO SCH ×2 (10:01→20:48)
[2021-02-21] MEDS: MIDODRINE HCL 5 MG TABLET PO SCH ×3 (10:01→20:45)
[2021-02-21] MEDS: RIFAMPIN 300 MG CAPSULE PO SCH ×2 (10:01→20:48)
[2021-02-21] MEDS ORDERED: CLINIMIX-E 4.25AA/D5+LYT1000ML 1,000 ML IV SCH (10:13)
[2021-02-21] MEDS ORDERED: VANCOMYCIN PROTOCOL PER PHARMACY IV SCH (10:30)
[2021-02-21] MEDS ORDERED: VANCOMYCIN 1G VIAL IVPB ONE (10:30)
[2021-02-21] MEDS ORDERED: VANCOMYCIN KIT 1 GM/250 ML IV.KIT IV SCH (11:00)
[2021-02-21] MEDS ORDERED: 0.9% NACL 250ML 250 ML IV SCH (11:00)
[2021-02-21] MEDS: IPRATROPIUM/ALBUTEROL SULFATE 3 ML SOLUTION IH SCH ×3 (11:28→23:08)
[2021-02-21] MEDS ORDERED: SODIUM CHLORIDE 3% FOR INHALATION 4 ML/AMP VIAL.NEB IH ONE (11:34)
[2021-02-21] MEDS: FLUDROCORTISONE ACETATE 0.1 MG TABLET PO SCH (12:13)
[2021-02-21] MEDS: CLINIMIX-E4.25%AA/D5+LYT2000ML 2,000 ML IV NR (12:27)
[2021-02-21 12:30] VITALS: BP 101/51
[2021-02-21] MEDS ORDERED: IBUPROFEN 600 MG TABLET PO SCH (13:30)
[2021-02-21 13:35] LABS: APPEARANCE,URINE CLEAR (CLEAR); BILIRUBIN,URINE MODERATE (NEGATIVE); COLOR,URINE ORANGE (YELLOW); GLUCOSE, URINE (UA) NEGATIVE (NEGATIVE); KETONES,URINE 15 mg/dL (NEGATIVE); LEUKOCYTE ESTERASE ,URINE NEGATIVE (NEGATIVE); NITRATE,URINE POSITIVE (NEGATIVE); OCCULT BLOOD,URINE MODERATE (NEGATIVE); PROTEIN,URINE 30 mg/dL (NEGATIVE); UROBILINOGEN,URINE >=8.0 mg/dL (0.2-1.0)
[2021-02-21] MEDS ORDERED: 0.9%NACL 50ML 50 ML IV ONE ×2 (13:42→20:37)
[2021-02-21 13:43] LABS: BACTERIA,URINE Rare /HPF (None Seen); SQUAMOUS EPITHELIAL CELL,UR Rare /HPF (0-2); WBC,URINE 0-1 /HPF (0-1)
[2021-02-21] MEDS ORDERED: POLYETHYLENE GLYCOL 3350 17 GM POWD.PACK PO SCH (14:30)
[2021-02-21 16:30] VITALS: BP 90/42
[2021-02-21 19:30] VITALS: BP 114/49
[2021-02-21] MEDS: HYDROXYCHLOROQUINE SULFATE 200 MG TAB PO SCH (20:47)
[2021-02-21] MEDS: BACLOFEN 10 MG TABLET PO SCH (20:47)
[2021-02-21] MEDS: CITALOPRAM 20 MG TABLET PO SCH (20:47)
[2021-02-21] MEDS: MIRTAZAPINE 15 MG TABLET PO SCH (20:47)
[2021-02-21] MEDS: LEVOFLOXACIN 500 MG TABLET PO SCH (20:48)
[2021-02-21] MEDS: PREDNISONE 5 MG TABLET PO SCH (20:48)
[2021-02-21] MEDS: ATORVASTATIN 10 MG TABLET PO SCH (20:48)
[2021-02-21 23:00] VITALS: BP 92/38
[2021-02-22] VITALS (10 sets, daily range): BP systolic 85–135; BP diastolic 40–77
[2021-02-22 03:34] LABS: HEMATOCRIT 26.5 % (36-48); MEAN CORPUSCULAR HEMOGLOBIN 30.7 pg (27.0-33.0); MEAN CORPUSCULAR HGB CONC 34.7 g/dL (32.0-36.0); MEAN CORPUSCULAR VOLUME 88.3 fL (79-99); RED CELL DISTRIBUTION WIDTH 11.8 % (11.0-15.5); WHITE BLOOD COUNT (AUTO) 6.8 K/uL (4.8-10.8)
[2021-02-22 03:51] LABS: CREATININE 0.8 mg/dL (0.5-1.5); POTASSIUM 3.1 mmol/L (3.5-5.1)
[2021-02-22] MEDS ORDERED: 0.9%NACL 50ML 50 ML IV ONE (04:28)
[2021-02-22] MEDS: MIDODRINE HCL 5 MG TABLET PO SCH ×3 (04:32→21:00)
[2021-02-22] MEDS: D5 NS WITH 20 mEq KCl 1000ML 1,000 ML IV SCH (04:32)
[2021-02-22] MEDS: ZOSYN 3.375GM +NS 50ML IV SCH ×2 (04:32→11:37)
[2021-02-22] MEDS: METOCLOPRAMIDE 10 MG/2 ML VIAL IVP SCH ×3 (06:21→16:07)
[2021-02-22] MEDS: INSULIN HUMULIN R 100 UNIT/ML 3ML SQ SCH ×4 (06:29→21:00)
[2021-02-22] MEDS: IPRATROPIUM/ALBUTEROL SULFATE 3 ML SOLUTION IH SCH ×4 (06:46→23:34)
[2021-02-22] MEDS: POLYETHYLENE GLYCOL 3350 17 GM POWD.PACK PO SCH (08:36)
[2021-02-22] MEDS: VANCOMYCIN 750MG VIAL IVPB SCH (08:36)
[2021-02-22] MEDS: ALPRAZOLAM 0.25 MG TABLET PO SCH ×2 (08:36→22:30)
[2021-02-22] MEDS: PREGABALIN 75 MG CAPSULE PO SCH ×2 (08:36→22:30)
[2021-02-22] MEDS: TAMSULOSIN HCL 0.4 MG CAP.ER.24H PO SCH (08:36)
[2021-02-22] MEDS: RIFAMPIN 300 MG CAPSULE PO SCH ×2 (08:36→22:30)
[2021-02-22] MEDS: 0.9% NACL 250ML 250 ML IV SCH (08:36)
[2021-02-22] MEDS: PANTOPRAZOLE 40 MG TAB DR PO SCH (08:37)
[2021-02-22] MEDS: **HM** DICLOFENAC 75MG PO SCH ×2 (08:37→21:00)
[2021-02-22] MEDS: AZITHROMYCIN 250 MG TABLET PO SCH (08:37)
[2021-02-22] MEDS: KETOROLAC 15MG/ML VIAL (15MG/ML) IM PRN (09:50)
[2021-02-22] MEDS: FLUDROCORTISONE ACETATE 0.1 MG TABLET PO SCH (11:37)
[2021-02-22 20:09] LABS: ABG BASE EXCESS 0.8 mmol/L (-2.0-3.0); ABG HCO3 21.1 mmol/L (21.0-28.0); ABG OXYGEN SATURATION 94.6 % (95.0-99.0); ABG PCO2 24 mmHg (32-45)
[2021-02-22] MEDS ORDERED: POTASSIUM CHLORIDE 10% ELIXIR 20 MEQ/15 ML UDCUP ONE (20:43)
[2021-02-22] MEDS: CLINIMIX-E4.25%AA/D5+LYT2000ML 2,000 ML IV NR (20:58)
[2021-02-22] MEDS: CITALOPRAM 20 MG TABLET PO SCH (21:00)
[2021-02-22] MEDS: ATORVASTATIN 10 MG TABLET PO SCH (21:00)
[2021-02-22] MEDS ORDERED: LIDOCAINE HCL-MPF 1% 2ML VIAL IV PRN (21:00)
[2021-02-22] MEDS: HYDROXYCHLOROQUINE SULFATE 200 MG TAB PO SCH (21:00)
[2021-02-22] MEDS: BACLOFEN 10 MG TABLET PO SCH (21:00)
[2021-02-22] MEDS: LEVOFLOXACIN 500 MG TABLET PO SCH (21:00)
[2021-02-22] MEDS ORDERED: POTASSIUM CHLORIDE 20MEQ/100ML 100 ML IV PRN (21:00)
[2021-02-22] MEDS: KCL 20 MEQ ERTAB PO PRN (21:29)
[2021-02-22] MEDS: MIRTAZAPINE 15 MG TABLET PO SCH (22:30)
[2021-02-22] MEDS: PREDNISONE 5 MG TABLET PO SCH (22:30)
[2021-02-22] MEDS ORDERED: ONDANSETRON 4MG INJ ONE (22:43)
[2021-02-22] MEDS: POTASSIUM CHLORIDE 20MEQ/100ML 100 ML IV PRN (22:51)
[2021-02-22] MEDS ORDERED: 0.9%NACL 1000ML 1,000 ML IV ONE (23:32)
[2021-02-23] VITALS (7 sets, daily range): BP systolic 112–129; BP diastolic 55–82
[2021-02-23] MEDS: D5 NS WITH 20 mEq KCl 1000ML 1,000 ML IV SCH ×2 (00:25→21:30)
[2021-02-23] MEDS: ZOSYN 3.375GM +NS 50ML IV SCH ×4 (00:25→22:32)
[2021-02-23] MEDS: ALPRAZOLAM 0.25 MG TABLET PO SCH ×3 (00:31→23:55)
[2021-02-23] MEDS: METOCLOPRAMIDE 10 MG/2 ML VIAL IVP SCH ×3 (00:48→17:14)
[2021-02-23 04:15] LABS: HEMATOCRIT 25.6 % (36-48); MEAN CORPUSCULAR HEMOGLOBIN 30.5 pg (27.0-33.0); MEAN CORPUSCULAR HGB CONC 35.2 g/dL (32.0-36.0); MEAN CORPUSCULAR VOLUME 86.8 fL (79-99); RED BLOOD CELL COUNT(AUTO) 2.95 MIL/uL (4.00-5.50); RED CELL DISTRIBUTION WIDTH 11.6 % (11.0-15.5); WHITE BLOOD COUNT (AUTO) 8.5 K/uL (4.8-10.8)
[2021-02-23 04:33] LABS: CREATININE 0.8 mg/dL (0.5-1.5); POTASSIUM 3.6 mmol/L (3.5-5.1)
[2021-02-23] MEDS: IPRATROPIUM/ALBUTEROL SULFATE 3 ML SOLUTION IH SCH ×4 (06:27→23:22)
[2021-02-23] MEDS: CLINIMIX-E4.25%AA/D5+LYT2000ML 2,000 ML IV NR (07:00)
[2021-02-23] MEDS: INSULIN HUMULIN R 100 UNIT/ML 3ML SQ SCH ×4 (07:30→22:36)
[2021-02-23] MEDS: **HM** DICLOFENAC 75MG PO SCH ×2 (09:00→21:00)
[2021-02-23] MEDS: PREGABALIN 75 MG CAPSULE PO SCH ×2 (09:00→21:00)
[2021-02-23] MEDS: PANTOPRAZOLE 40 MG TAB DR PO SCH (09:00)
[2021-02-23] MEDS: POLYETHYLENE GLYCOL 3350 17 GM POWD.PACK PO SCH (09:00)
[2021-02-23] MEDS: TAMSULOSIN HCL 0.4 MG CAP.ER.24H PO SCH (09:00)
[2021-02-23] MEDS: MIDODRINE HCL 5 MG TABLET PO SCH ×3 (09:00→21:00)
[2021-02-23] MEDS: RIFAMPIN 300 MG CAPSULE PO SCH ×2 (09:00→23:55)
[2021-02-23] MEDS: AZITHROMYCIN 250 MG TABLET PO SCH (09:00)
[2021-02-23] MEDS ORDERED: DIATR MEGLU/DIATRIZOATE SODIUM 30 ML BOTTLE ONE (10:28)
[2021-02-23 11:20] LABS: INR 1.6 (0.85-1.15); PROTHROMBIN TIME 16.7 SEC (9.6-11.6)
[2021-02-23] MEDS: FLUDROCORTISONE ACETATE 0.1 MG TABLET PO SCH (12:00)
[2021-02-23] MEDS ORDERED: FENTANYL CITRATE PF 50 MCG/1 ML 2ML VIAL ONE (12:01)
[2021-02-23] MEDS ORDERED: MIDAZOLAM HCL 1 MG/ML 2ML VIAL ONE (12:02)
[2021-02-23] MEDS: VANCOMYCIN 750MG VIAL IVPB SCH (13:36)
[2021-02-23] MEDS: 0.9% NACL 250ML 250 ML IV SCH (13:37)
[2021-02-23] MEDS: KETOROLAC 15MG/ML VIAL (15MG/ML) IM PRN (18:57)
[2021-02-23] MEDS: ACETAMINOPHEN 325 MG TAB PO PRN (18:58)
[2021-02-23] MEDS: ONDANSETRON 4MG INJ IVP PRN (20:52)
[2021-02-23] MEDS: LEVOFLOXACIN 500 MG TABLET PO SCH (21:00)
[2021-02-23] MEDS: BACLOFEN 10 MG TABLET PO SCH (21:00)
[2021-02-23] MEDS: ATORVASTATIN 10 MG TABLET PO SCH (21:00)
[2021-02-23] MEDS ORDERED: SODIUM CHLORIDE 3% FOR INHALATION 4 ML/AMP VIAL.NEB IH ONE (23:03)
[2021-02-23] MEDS: PREDNISONE 5 MG TABLET PO SCH (23:55)
[2021-02-23] MEDS: HYDROXYCHLOROQUINE SULFATE 200 MG TAB PO SCH (23:55)
[2021-02-23] MEDS: CITALOPRAM 20 MG TABLET PO SCH (23:55)
[2021-02-23] MEDS: MIRTAZAPINE 15 MG TABLET PO SCH (23:56)
[2021-02-24] MEDS: KETOROLAC 15MG/ML VIAL (15MG/ML) IM PRN ×4 (03:13→23:22)
[2021-02-24 04:14] VITALS: BP 123/55
[2021-02-24 04:32] LABS: HEMATOCRIT 25.3 % (36-48); MEAN CORPUSCULAR HEMOGLOBIN 29.8 pg (27.0-33.0); MEAN CORPUSCULAR HGB CONC 34.4 g/dL (32.0-36.0); MEAN CORPUSCULAR VOLUME 86.6 fL (79-99); RED BLOOD CELL COUNT(AUTO) 2.92 MIL/uL (4.00-5.50); RED CELL DISTRIBUTION WIDTH 11.8 % (11.0-15.5)
[2021-02-24 04:47] LABS: ABG BASE EXCESS -1.5 mmol/L (-2.0-3.0); ABG HCO3 20.4 mmol/L (21.0-28.0); ABG OXYGEN SATURATION 97.2 % (95.0-99.0); ABG PCO2 28 mmHg (32-45)
[2021-02-24 04:49] LABS: ALBUMIN 1.6 g/dL (3.5-5.0); BILIRUBIN,DIRECT 1.2 mg/dL (0.0-0.3); BILIRUBIN,TOTAL 1.8 mg/dL (0.2-1.0); CREATININE 0.6 mg/dL (0.5-1.5); POTASSIUM 3.2 mmol/L (3.5-5.1); TOTAL PROTEIN, SERUM 5.2 g/dL (6.0-8.3)
[2021-02-24] MEDS: ZOSYN 3.375GM +NS 50ML IV SCH ×3 (05:50→20:50)
[2021-02-24] MEDS: IPRATROPIUM/ALBUTEROL SULFATE 3 ML SOLUTION IH SCH ×4 (06:47→23:15)
[2021-02-24 07:00] VITALS: BP 145/70
[2021-02-24] MEDS: INSULIN HUMULIN R 100 UNIT/ML 3ML SQ SCH ×4 (07:30→20:56)
[2021-02-24] MEDS: METOCLOPRAMIDE 10 MG/2 ML VIAL IVP SCH ×3 (07:30→16:25)
[2021-02-24] MEDS: POLYETHYLENE GLYCOL 3350 17 GM POWD.PACK PO SCH (08:18)
[2021-02-24] MEDS: MIDODRINE HCL 5 MG TABLET PO SCH ×3 (08:19→20:51)
[2021-02-24] MEDS: **HM** DICLOFENAC 75MG PO SCH ×2 (09:00→21:00)
[2021-02-24] MEDS: CLINIMIX-E4.25%AA/D5+LYT2000ML 2,000 ML IV NR (09:00)
[2021-02-24] MEDS: ONDANSETRON 4MG INJ IVP PRN ×2 (09:58→16:59)
[2021-02-24] MEDS: TAMSULOSIN HCL 0.4 MG CAP.ER.24H PO SCH (09:59)
[2021-02-24] MEDS: PANTOPRAZOLE 40 MG TAB DR PO SCH (09:59)
[2021-02-24] MEDS: ALPRAZOLAM 0.25 MG TABLET PO SCH ×2 (09:59→20:52)
[2021-02-24] MEDS: VANCOMYCIN 750MG VIAL IVPB SCH (09:59)
[2021-02-24] MEDS: AZITHROMYCIN 250 MG TABLET PO SCH (09:59)
[2021-02-24] MEDS: RIFAMPIN 300 MG CAPSULE PO SCH ×2 (09:59→20:52)
[2021-02-24] MEDS: PREGABALIN 75 MG CAPSULE PO SCH ×2 (10:00→20:53)
[2021-02-24] MEDS: KCL 20 MEQ ERTAB PO PRN (10:00)
[2021-02-24 11:00] VITALS: BP 151/78
[2021-02-24] MEDS: POTASSIUM CHLORIDE 20MEQ/100ML 100 ML IV PRN ×2 (12:31→16:25)
[2021-02-24] MEDS: FLUDROCORTISONE ACETATE 0.1 MG TABLET PO SCH (12:31)
[2021-02-24 14:50] LABS: AMYLASE 50 U/L (25-115); LIPASE 398 U/L (114-286)
[2021-02-24 16:00] VITALS: BP 119/59
[2021-02-24] MEDS: D5 NS WITH 20 mEq KCl 1000ML 1,000 ML IV SCH (16:12)
[2021-02-24] MEDS ORDERED: MAG/ALUM/SIMETH 30 ML UDCUP PO SCH (16:30)
[2021-02-24] MEDS ORDERED: SODIUM CHLORIDE 3% FOR INHALATION 4 ML/AMP VIAL.NEB IH ONE (18:33)
[2021-02-24] MEDS ORDERED: HYDROMORPHONE 0.5 MG SYG (0.5MG/0.5ML) IVP ONE (19:00)
[2021-02-24 20:33] VITALS: BP 110/49
[2021-02-24] MEDS: ATORVASTATIN 10 MG TABLET PO SCH (20:52)
[2021-02-24] MEDS: MIRTAZAPINE 15 MG TABLET PO SCH (20:52)
[2021-02-24] MEDS: LEVOFLOXACIN 500 MG TABLET PO SCH (20:52)
[2021-02-24] MEDS: HYDROXYCHLOROQUINE SULFATE 200 MG TAB PO SCH (20:52)
[2021-02-24] MEDS: PREDNISONE 5 MG TABLET PO SCH (20:52)
[2021-02-24] MEDS: BACLOFEN 10 MG TABLET PO SCH (20:52)
[2021-02-24] MEDS: CITALOPRAM 20 MG TABLET PO SCH (23:26)
[2021-02-24 23:44] VITALS: BP 124/66
[2021-02-25] VITALS (36 sets, daily range): BP systolic 88–170; BP diastolic 46–76
[2021-02-25 03:43] LABS: BASOPHILS % (AUTO) 0.3 % (0.0-5.0); EOSINOPHILS % (AUTO) 2.6 % (0.0-8.0); HEMATOCRIT 26.6 % (36-48); LYMPHOCYTES % (AUTO) 7.9 % (21.0-51.0); MEAN CORPUSCULAR HEMOGLOBIN 29.6 pg (27.0-33.0); MEAN CORPUSCULAR HGB CONC 33.8 g/dL (32.0-36.0); MEAN CORPUSCULAR VOLUME 87.5 fL (79-99); MONOCYTES % (AUTO) 8.3 % (3.0-13.0); NEUTROPHILS % (AUTO) 79.9 % (40.0-77.0); PLATELET COUNT (AUTO) 218 K/uL (130-400); RED BLOOD CELL COUNT(AUTO) 3.04 MIL/uL (4.00-5.50); RED CELL DISTRIBUTION WIDTH 11.6 % (11.0-15.5); WHITE BLOOD COUNT (AUTO) 7.7 K/uL (4.8-10.8)
[2021-02-25 03:55] LABS: ALBUMIN 1.7 g/dL (3.5-5.0); BILIRUBIN,TOTAL 4.8 mg/dL (0.2-1.0); CREATININE 0.7 mg/dL (0.5-1.5); MAGNESIUM 1.8 mg/dL (1.80-2.40); POTASSIUM 4.2 mmol/L (3.5-5.1); TOTAL PROTEIN, SERUM 5.5 g/dL (6.0-8.3)
[2021-02-25] MEDS ORDERED: 0.9%NACL 1000ML 1,000 ML IV SCH (04:30)
[2021-02-25] MEDS: ZOSYN 3.375GM +NS 50ML IV SCH ×3 (05:25→20:43)
[2021-02-25] MEDS: IPRATROPIUM/ALBUTEROL SULFATE 3 ML SOLUTION IH SCH ×4 (06:23→23:22)
[2021-02-25] MEDS: INSULIN HUMULIN R 100 UNIT/ML 3ML SQ SCH ×4 (07:30→20:45)
[2021-02-25] MEDS: POLYETHYLENE GLYCOL 3350 17 GM POWD.PACK PO SCH (07:36)
[2021-02-25] MEDS: CLINIMIX-E4.25%AA/D5+LYT2000ML 2,000 ML IV NR (07:36)
[2021-02-25] MEDS: **HM** DICLOFENAC 75MG PO SCH ×2 (09:00→21:00)
[2021-02-25] MEDS: MAGNESIUM 2GM PREMIX 50ML 50 ML IV PRN (09:49)
[2021-02-25] MEDS: AZITHROMYCIN 250 MG TABLET PO SCH (09:53)
[2021-02-25] MEDS: METOCLOPRAMIDE 10 MG/2 ML VIAL IVP SCH ×3 (09:53→15:16)
[2021-02-25] MEDS: ALPRAZOLAM 0.25 MG TABLET PO SCH ×2 (09:53→20:43)
[2021-02-25] MEDS: MIDODRINE HCL 5 MG TABLET PO SCH ×3 (09:53→20:44)
[2021-02-25] MEDS: PANTOPRAZOLE 40 MG TAB DR PO SCH (09:53)
[2021-02-25] MEDS: TAMSULOSIN HCL 0.4 MG CAP.ER.24H PO SCH (09:53)
[2021-02-25] MEDS: RIFAMPIN 300 MG CAPSULE PO SCH (09:53)
[2021-02-25] MEDS: PREGABALIN 75 MG CAPSULE PO SCH ×2 (09:53→20:43)
[2021-02-25] MEDS ORDERED: VANCOMYCIN 750MG 750 MG in 0.9% NACL 250ML 250 ML IVPB SCH (10:00)
[2021-02-25] MEDS: KETOROLAC 15MG/ML VIAL (15MG/ML) IM PRN ×2 (10:00→21:30)
[2021-02-25] MEDS: ONDANSETRON 4MG INJ IVP PRN (10:00)
[2021-02-25] MEDS ORDERED: VANCOMYCIN 750MG VIAL IVPB SCH (10:15)
[2021-02-25] MEDS: FLUDROCORTISONE ACETATE 0.1 MG TABLET PO SCH (11:39)
[2021-02-25] MEDS ORDERED: SODIUM CHLORIDE 3% FOR INHALATION 4 ML/AMP VIAL.NEB IH ONE ×2 (13:20→18:14)
[2021-02-25 13:44] LABS: ABG BASE EXCESS -4.2 mmol/L (-2.0-3.0); ABG HCO3 18.8 mmol/L (21.0-28.0); ABG OXYGEN SATURATION 99.2 % (95.0-99.0); ABG PCO2 28 mmHg (32-45)
[2021-02-25] MEDS: CITALOPRAM 20 MG TABLET PO SCH (20:43)
[2021-02-25] MEDS: PREDNISONE 5 MG TABLET PO SCH (20:43)
[2021-02-25] MEDS: MIRTAZAPINE 15 MG TABLET PO SCH (20:44)
[2021-02-25] MEDS: LEVOFLOXACIN 500 MG TABLET PO SCH (20:44)
[2021-02-26] VITALS (70 sets, daily range): BP systolic 67–160; BP diastolic 36–107
[2021-02-26] MEDS: KETOROLAC 15MG/ML VIAL (15MG/ML) IM PRN ×3 (03:44→14:27)
[2021-02-26] MEDS: ZOSYN 3.375GM +NS 50ML IV SCH ×3 (05:25→20:36)
[2021-02-26 05:40] LABS: HEMATOCRIT 25.2 % (36-48); MEAN CORPUSCULAR HEMOGLOBIN 29.6 pg (27.0-33.0); MEAN CORPUSCULAR HGB CONC 34.1 g/dL (32.0-36.0); MEAN CORPUSCULAR VOLUME 86.6 fL (79-99); RED BLOOD CELL COUNT(AUTO) 2.91 MIL/uL (4.00-5.50); RED CELL DISTRIBUTION WIDTH 12.1 % (11.0-15.5); WHITE BLOOD COUNT (AUTO) 8.7 K/uL (4.8-10.8)
[2021-02-26] MEDS: INSULIN HUMULIN R 100 UNIT/ML 3ML SQ SCH ×4 (06:00→22:51)
[2021-02-26 06:01] LABS: ALBUMIN 1.7 g/dL (3.5-5.0); BILIRUBIN,TOTAL 4.7 mg/dL (0.2-1.0); CREATININE 0.6 mg/dL (0.5-1.5); POTASSIUM 3.8 mmol/L (3.5-5.1); TOTAL PROTEIN, SERUM 5.4 g/dL (6.0-8.3)
[2021-02-26] MEDS: IPRATROPIUM/ALBUTEROL SULFATE 3 ML SOLUTION IH SCH ×4 (06:19→23:30)
[2021-02-26] MEDS: ONDANSETRON 4MG INJ IVP PRN (08:25)
[2021-02-26] MEDS: PANTOPRAZOLE 40 MG TAB DR PO SCH (08:26)
[2021-02-26] MEDS: ALPRAZOLAM 0.25 MG TABLET PO SCH ×2 (08:26→20:24)
[2021-02-26] MEDS: AZITHROMYCIN 250 MG TABLET PO SCH (08:26)
[2021-02-26] MEDS: MIDODRINE HCL 5 MG TABLET PO SCH ×3 (08:26→20:23)
[2021-02-26] MEDS: POLYETHYLENE GLYCOL 3350 17 GM POWD.PACK PO SCH (08:27)
[2021-02-26] MEDS: TAMSULOSIN HCL 0.4 MG CAP.ER.24H PO SCH (08:30)
[2021-02-26] MEDS: PREGABALIN 75 MG CAPSULE PO SCH ×2 (08:30→20:23)
[2021-02-26] MEDS: **HM** DICLOFENAC 75MG PO SCH ×2 (09:00→20:22)
[2021-02-26] MEDS ORDERED: CLINIMIX-E 5%AA /D15%W 2000ML 2,000 ML IV SCH (09:00)
[2021-02-26] MEDS: FLUDROCORTISONE ACETATE 0.1 MG TABLET PO SCH (11:16)
[2021-02-26] MEDS ORDERED: LORAZEPAM 2 MG/ML 1 ML VIAL IVP SCH (16:00)
[2021-02-26] MEDS ORDERED: FUROSEMIDE 20MG VIAL IV SCH ×2 (18:00→19:30)
[2021-02-26] MEDS ORDERED: DEXMEDETOMIDINE 400MCG/NS100ML IV ONE (19:33)
[2021-02-26] MEDS ORDERED: FUROSEMIDE 20MG VIAL ONE (19:33)
[2021-02-26] MEDS: CITALOPRAM 20 MG TABLET PO SCH (20:15)
[2021-02-26] MEDS: LEVOFLOXACIN 500 MG TABLET PO SCH (20:22)
[2021-02-26] MEDS: MIRTAZAPINE 15 MG TABLET PO SCH (20:23)
[2021-02-26 20:55] LABS: ABG BASE EXCESS -0.6 mmol/L (-2.0-3.0); ABG HCO3 25.7 mmol/L (21.0-28.0); ABG OXYGEN SATURATION 91.9 % (95.0-99.0); ABG PCO2 50 mmHg (32-45)
[2021-02-26] MEDS: PREDNISONE 5 MG TABLET PO SCH (21:00)
[2021-02-26] MEDS ORDERED: SOLU-MEDROL 40MG VIAL ONE (21:32)
[2021-02-26 21:57] LABS: ABG BASE EXCESS -0.2 mmol/L (-2.0-3.0); ABG HCO3 26.2 mmol/L (21.0-28.0); ABG PCO2 52 mmHg (32-45)
[2021-02-26] MEDS: SOLU-MEDROL 40MG VIAL IVP SCH (22:08)
[2021-02-26] MEDS: ZIPRASIDONE MESYLATE 20 MG/VIAL IM SCH (22:39)
[2021-02-26] MEDS: PHENYLEPHRINE HCL 100 MG in 0.9% NACL 250ML 250 ML IV SCH (23:11)
[2021-02-27] VITALS (40 sets, daily range): BP systolic 48–151; BP diastolic 23–101
[2021-02-27] MEDS ORDERED: ALBUMIN (HUMAN) 5% 250 ML IV ONE ×2 (00:23→02:19)
[2021-02-27] MEDS ORDERED: ALBUMIN (HUMAN) 5% 250 ML IV SCH (00:30)
[2021-02-27] MEDS ORDERED: NOREPINEPHRIN 8MG/250ML NS PMX 250 ML IV ONE (02:24)
[2021-02-27] MEDS: SOLU-MEDROL 40MG VIAL IVP SCH ×4 (03:49→20:54)
[2021-02-27] MEDS: DEXMEDETOMIDINE 400MCG/NS100ML IV SCH ×3 (04:24→20:46)
[2021-02-27] MEDS: ZOSYN 3.375GM +NS 50ML IV SCH ×3 (05:41→20:45)
[2021-02-27 06:10] LABS: ALBUMIN 2.3 g/dL (3.5-5.0); BILIRUBIN,TOTAL 2.8 mg/dL (0.2-1.0); CREATININE 0.8 mg/dL (0.5-1.5); MAGNESIUM 2.2 mg/dL (1.80-2.40); TOTAL PROTEIN, SERUM 5.8 g/dL (6.0-8.3)
[2021-02-27] MEDS ORDERED: FUROSEMIDE 40MG VIAL ONE (06:19)
[2021-02-27 06:27] LABS: MEAN CORPUSCULAR HEMOGLOBIN 29.8 pg (27.0-33.0); MEAN CORPUSCULAR HGB CONC 29.6 g/dL (32.0-36.0); MEAN CORPUSCULAR VOLUME 100.8 fL (79-99); PLATELET COUNT (AUTO) 286 K/uL (130-400); RED BLOOD CELL COUNT(AUTO) 2.38 MIL/uL (4.00-5.50); RED CELL DISTRIBUTION WIDTH 13.2 % (11.0-15.5); WHITE BLOOD COUNT (AUTO) 13.7 K/uL (4.8-10.8)
[2021-02-27] MEDS: FUROSEMIDE 40MG VIAL IV SCH (06:30)
[2021-02-27] MEDS: INSULIN HUMULIN R 100 UNIT/ML 3ML SQ SCH ×3 (06:44→17:38)
[2021-02-27 06:55] LABS: B-TYPE NATRIURETIC PEPTIDE 688 pg/mL (0-100)
[2021-02-27 07:20] LABS: ABG BASE EXCESS -4.8 mmol/L (-2.0-3.0); ABG HCO3 21.3 mmol/L (21.0-28.0); ABG OXYGEN SATURATION 91.8 % (95.0-99.0); ABG PCO2 43 mmHg (32-45)
[2021-02-27] MEDS: KETOROLAC 15MG/ML VIAL (15MG/ML) IM PRN (08:25)
[2021-02-27] MEDS: **HM** DICLOFENAC 75MG PO SCH ×2 (08:33→20:48)
[2021-02-27] MEDS: FUROSEMIDE 100MG VIAL 100 MG in 0.9%NACL 100ML 100 ML IV SCH ×2 (08:41→17:35)
[2021-02-27] MEDS: DOBUTAMINE 250MG/D5 250ML 250 ML IV SCH (08:53)
[2021-02-27] MEDS: PHENYLEPHRINE HCL 100 MG in 0.9% NACL 250ML 250 ML IV SCH ×2 (08:54→23:10)
[2021-02-27] MEDS ORDERED: DOPAMINE 800MG/D5 250ML 250 ML IV PRN (09:00)
[2021-02-27] MEDS: MIDODRINE HCL 5 MG TABLET PO SCH ×3 (09:43→20:46)
[2021-02-27] MEDS: TAMSULOSIN HCL 0.4 MG CAP.ER.24H PO SCH (09:43)
[2021-02-27] MEDS: ALPRAZOLAM 0.25 MG TABLET PO SCH ×2 (09:43→20:47)
[2021-02-27] MEDS: PREGABALIN 75 MG CAPSULE PO SCH ×2 (09:44→20:47)
[2021-02-27] MEDS: PANTOPRAZOLE 40 MG TAB DR PO SCH (09:44)
[2021-02-27] MEDS: AZITHROMYCIN 250 MG TABLET PO SCH (09:44)
[2021-02-27] MEDS: POLYETHYLENE GLYCOL 3350 17 GM POWD.PACK PO SCH (09:44)
[2021-02-27] MEDS: FLUDROCORTISONE ACETATE 0.1 MG TABLET PO SCH (11:55)
[2021-02-27 14:42] LABS: MEAN CORPUSCULAR HEMOGLOBIN 29.7 pg (27.0-33.0); MEAN CORPUSCULAR HGB CONC 31.5 g/dL (32.0-36.0); MEAN CORPUSCULAR VOLUME 94.2 fL (79-99); RED BLOOD CELL COUNT(AUTO) 2.76 MIL/uL (4.00-5.50); RED CELL DISTRIBUTION WIDTH 12.8 % (11.0-15.5); WHITE BLOOD COUNT (AUTO) 11.9 K/uL (4.8-10.8)
[2021-02-27] MEDS: IPRATROPIUM/ALBUTEROL SULFATE 3 ML SOLUTION IH SCH (18:00)
[2021-02-27] MEDS: INSULIN GLARGINE 100 UNITS/ML 10 ML VIAL SQ SCH ×2 (18:40→20:49)
[2021-02-27] MEDS ORDERED: CLINIMIX-E 5%AA /D15%W 2000ML 2,000 ML IV SCH (19:00)
[2021-02-27] MEDS: INSULIN LISPRO 100 UNIT/ML 3ML SQ SCH (20:44)
[2021-02-27] MEDS: CITALOPRAM 20 MG TABLET PO SCH (20:47)
[2021-02-27] MEDS: PREDNISONE 5 MG TABLET PO SCH (20:47)
[2021-02-27] MEDS: MIRTAZAPINE 15 MG TABLET PO SCH (20:47)
[2021-02-27] MEDS: LEVOFLOXACIN 500 MG TABLET PO SCH (20:47)
[2021-02-27] MEDS: ZIPRASIDONE MESYLATE 20 MG/VIAL IM SCH (22:17)
[2021-02-28] VITALS (71 sets, daily range): BP systolic 77–162; BP diastolic 42–88
[2021-02-28] MEDS: INSULIN LISPRO 100 UNIT/ML 3ML SQ SCH ×6 (01:34→20:07)
[2021-02-28] MEDS: SOLU-MEDROL 40MG VIAL IVP SCH ×4 (03:56→22:57)
[2021-02-28 04:28] LABS: MEAN CORPUSCULAR HEMOGLOBIN 29.6 pg (27.0-33.0); MEAN CORPUSCULAR HGB CONC 33.5 g/dL (32.0-36.0); MEAN CORPUSCULAR VOLUME 88.4 fL (79-99); NUCLEATED RED BLOOD CELLS 0.2 % (0.0-0.19); RED BLOOD CELL COUNT(AUTO) 2.94 MIL/uL (4.00-5.50); RED CELL DISTRIBUTION WIDTH 12.3 % (11.0-15.5); WHITE BLOOD COUNT (AUTO) 13.2 K/uL (4.8-10.8)
[2021-02-28 04:44] LABS: ALBUMIN 2.2 g/dL (3.5-5.0); BILIRUBIN,TOTAL 2.3 mg/dL (0.2-1.0); CREATININE 0.8 mg/dL (0.5-1.5); MAGNESIUM 1.6 mg/dL (1.80-2.40); TOTAL PROTEIN, SERUM 6.3 g/dL (6.0-8.3)
[2021-02-28 04:48] LABS: POTASSIUM 2.6 mmol/L (3.5-5.1)
[2021-02-28] MEDS: ZOSYN 3.375GM +NS 50ML IV SCH ×3 (04:51→20:08)
[2021-02-28] MEDS: POTASSIUM CHLORIDE 20MEQ/100ML 100 ML IV PRN ×6 (04:52→22:09)
[2021-02-28] MEDS: DEXMEDETOMIDINE 400MCG/NS100ML IV SCH ×4 (04:58→23:24)
[2021-02-28] MEDS: FUROSEMIDE 100MG VIAL 100 MG in 0.9%NACL 100ML 100 ML IV SCH ×2 (06:02→16:37)
[2021-02-28] MEDS: FUROSEMIDE 40MG VIAL IV SCH ×2 (06:30→19:35)
[2021-02-28 07:18] LABS: ABG BASE EXCESS 11.3 mmol/L (-2.0-3.0); ABG OXYGEN SATURATION 94.8 % (95.0-99.0); ABG PCO2 33 mmHg (32-45)
[2021-02-28] MEDS: MAGNESIUM 2GM PREMIX 50ML 50 ML IV PRN (07:50)
[2021-02-28] MEDS: **HM** DICLOFENAC 75MG PO SCH ×2 (09:00→19:29)
[2021-02-28] MEDS: TAMSULOSIN HCL 0.4 MG CAP.ER.24H PO SCH (09:58)
[2021-02-28] MEDS: PREGABALIN 75 MG CAPSULE PO SCH ×2 (09:58→20:03)
[2021-02-28] MEDS: MIDODRINE HCL 5 MG TABLET PO SCH ×3 (09:58→20:03)
[2021-02-28] MEDS: ALPRAZOLAM 0.25 MG TABLET PO SCH ×2 (09:58→20:03)
[2021-02-28] MEDS: PANTOPRAZOLE 40 MG TAB DR PO SCH (09:58)
[2021-02-28] MEDS: POLYETHYLENE GLYCOL 3350 17 GM POWD.PACK PO SCH (09:59)
[2021-02-28] MEDS: AZITHROMYCIN 250 MG TABLET PO SCH (09:59)
[2021-02-28] MEDS: FLUDROCORTISONE ACETATE 0.1 MG TABLET PO SCH (11:52)
[2021-02-28] MEDS ORDERED: CLINIMIX-E 5%AA /D15%W 2000ML 2,000 ML IV SCH (12:00)
[2021-02-28 14:50] LABS: MAGNESIUM 2.4 mg/dL (1.80-2.40); POTASSIUM 3.2 mmol/L (3.5-5.1)
[2021-02-28] MEDS: DOBUTAMINE 250MG/D5 250ML 250 ML IV SCH (16:35)
[2021-02-28] MEDS: ZIPRASIDONE MESYLATE 20 MG/VIAL IM SCH (19:30)
[2021-02-28] MEDS: CITALOPRAM 20 MG TABLET PO SCH (20:03)
[2021-02-28] MEDS: LEVOFLOXACIN 500 MG TABLET PO SCH (20:04)
[2021-02-28] MEDS: MIRTAZAPINE 15 MG TABLET PO SCH (20:04)
[2021-02-28] MEDS: INSULIN GLARGINE 100 UNITS/ML 10 ML VIAL SQ SCH (20:08)
[2021-03-01] VITALS (73 sets, daily range): BP systolic 68–150; BP diastolic 31–84
[2021-03-01] MEDS: INSULIN LISPRO 100 UNIT/ML 3ML SQ SCH ×6 (00:29→20:52)
[2021-03-01 04:12] LABS: MEAN CORPUSCULAR HEMOGLOBIN 29.1 pg (27.0-33.0); MEAN CORPUSCULAR HGB CONC 31.9 g/dL (32.0-36.0); MEAN CORPUSCULAR VOLUME 91.2 fL (79-99); NUCLEATED RED BLOOD CELLS 0.2 % (0.0-0.19); RED BLOOD CELL COUNT(AUTO) 3.4 MIL/uL (4.00-5.50); RED CELL DISTRIBUTION WIDTH 12.4 % (11.0-15.5); WHITE BLOOD COUNT (AUTO) 13.2 K/uL (4.8-10.8)
[2021-03-01] MEDS: DEXMEDETOMIDINE 400MCG/NS100ML IV SCH ×2 (04:23→09:36)
[2021-03-01] MEDS: ZOSYN 3.375GM +NS 50ML IV SCH ×3 (04:30→20:47)
[2021-03-01 04:37] LABS: ALBUMIN 2.2 g/dL (3.5-5.0); BILIRUBIN,TOTAL 2.2 mg/dL (0.2-1.0); CREATININE 0.9 mg/dL (0.5-1.5); MAGNESIUM 2.2 mg/dL (1.80-2.40); POTASSIUM 3.3 mmol/L (3.5-5.1); TOTAL PROTEIN, SERUM 6.6 g/dL (6.0-8.3)
[2021-03-01] MEDS: SOLU-MEDROL 40MG VIAL IVP SCH ×3 (05:09→21:11)
[2021-03-01] MEDS: POTASSIUM CHLORIDE 20MEQ/100ML 100 ML IV PRN ×3 (05:10→13:56)
[2021-03-01] MEDS: POLYETHYLENE GLYCOL 3350 17 GM POWD.PACK PO SCH (08:05)
[2021-03-01] MEDS: TAMSULOSIN HCL 0.4 MG CAP.ER.24H PO SCH (08:06)
[2021-03-01] MEDS: AZITHROMYCIN 250 MG TABLET PO SCH (08:06)
[2021-03-01] MEDS: **HM** DICLOFENAC 75MG PO SCH ×2 (08:06→19:43)
[2021-03-01] MEDS: ALPRAZOLAM 0.25 MG TABLET PO SCH ×2 (08:06→20:46)
[2021-03-01] MEDS: PANTOPRAZOLE 40 MG TAB DR PO SCH (08:06)
[2021-03-01] MEDS: PREGABALIN 75 MG CAPSULE PO SCH ×2 (08:06→20:46)
[2021-03-01] MEDS: MIDODRINE HCL 5 MG TABLET PO SCH ×3 (08:06→20:46)
[2021-03-01] MEDS ORDERED: CLINIMIX-E 5%AA /D15%W 2000ML 2,000 ML IV SCH (10:00)
[2021-03-01] MEDS: FLUDROCORTISONE ACETATE 0.1 MG TABLET PO SCH (12:00)
[2021-03-01] MEDS: FUROSEMIDE 100MG VIAL 100 MG in 0.9%NACL 100ML 100 ML IV SCH (14:05)
[2021-03-01] MEDS: PHENYLEPHRINE HCL 100 MG in 0.9% NACL 250ML 250 ML IV SCH (17:21)
[2021-03-01] MEDS: ZIPRASIDONE MESYLATE 20 MG/VIAL IM SCH (19:44)
[2021-03-01] MEDS: CITALOPRAM 20 MG TABLET PO SCH (20:46)
[2021-03-01] MEDS: LEVOFLOXACIN 500 MG TABLET PO SCH (20:46)
[2021-03-01] MEDS: INSULIN GLARGINE 100 UNITS/ML 10 ML VIAL SQ SCH (20:51)
[2021-03-01] MEDS: MIRTAZAPINE 15 MG TABLET PO SCH (20:53)
[2021-03-02] VITALS (93 sets, daily range): BP systolic 76–154; BP diastolic 36–73
[2021-03-02] MEDS: INSULIN LISPRO 100 UNIT/ML 3ML SQ SCH ×7 (00:51→20:14)
[2021-03-02] MEDS: POTASSIUM CHLORIDE 20MEQ/100ML 100 ML IV PRN (00:52)
[2021-03-02 04:20] LABS: BASOPHILS % (AUTO) 0.2 % (0.0-5.0); EOSINOPHILS % (AUTO) 0.6 % (0.0-8.0); HEMATOCRIT 30.4 % (36-48); LYMPHOCYTES % (AUTO) 14.8 % (21.0-51.0); MEAN CORPUSCULAR HEMOGLOBIN 28.9 pg (27.0-33.0); MEAN CORPUSCULAR HGB CONC 31.3 g/dL (32.0-36.0); MEAN CORPUSCULAR VOLUME 92.4 fL (79-99); MONOCYTES % (AUTO) 5.1 % (3.0-13.0); NEUTROPHILS % (AUTO) 77.8 % (40.0-77.0); PLATELET COUNT (AUTO) 412 K/uL (130-400); RED BLOOD CELL COUNT(AUTO) 3.29 MIL/uL (4.00-5.50); WHITE BLOOD COUNT (AUTO) 10.6 K/uL (4.8-10.8)
[2021-03-02] MEDS: ZOSYN 3.375GM +NS 50ML IV SCH ×3 (04:37→20:10)
[2021-03-02 04:41] LABS: ALBUMIN 2.1 g/dL (3.5-5.0); BILIRUBIN,TOTAL 1.6 mg/dL (0.2-1.0); MAGNESIUM 2.2 mg/dL (1.80-2.40); POTASSIUM 4.3 mmol/L (3.5-5.1); TOTAL PROTEIN, SERUM 6.7 g/dL (6.0-8.3)
[2021-03-02] MEDS: SOLU-MEDROL 40MG VIAL IVP SCH ×3 (05:08→20:40)
[2021-03-02] MEDS: FUROSEMIDE 40MG VIAL IV SCH (05:08)
[2021-03-02] MEDS: IPRATROPIUM/ALBUTEROL SULFATE 3 ML SOLUTION IH SCH ×2 (06:16→11:06)
[2021-03-02] MEDS: ALPRAZOLAM 0.25 MG TABLET PO SCH ×2 (08:11→20:10)
[2021-03-02] MEDS: PREGABALIN 75 MG CAPSULE PO SCH ×2 (08:11→20:10)
[2021-03-02] MEDS: TAMSULOSIN HCL 0.4 MG CAP.ER.24H PO SCH (08:11)
[2021-03-02] MEDS: PANTOPRAZOLE 40 MG TAB DR PO SCH (08:11)
[2021-03-02] MEDS: AZITHROMYCIN 250 MG TABLET PO SCH (08:11)
[2021-03-02] MEDS: MIDODRINE HCL 5 MG TABLET PO SCH ×3 (08:11→20:11)
[2021-03-02] MEDS: POLYETHYLENE GLYCOL 3350 17 GM POWD.PACK PO SCH (08:11)
[2021-03-02] MEDS: **HM** DICLOFENAC 75MG PO SCH ×2 (08:12→19:04)
[2021-03-02] MEDS: DOBUTAMINE 250MG/D5 250ML 250 ML IV SCH (08:15)
[2021-03-02] MEDS: ACETAMINOPHEN 325 MG TAB PO PRN (08:42)
[2021-03-02] MEDS: FUROSEMIDE 100MG VIAL 100 MG in 0.9%NACL 100ML 100 ML IV SCH (08:59)
[2021-03-02] MEDS: FLUDROCORTISONE ACETATE 0.1 MG TABLET PO SCH (12:54)
[2021-03-02] MEDS: DEXMEDETOMIDINE 400MCG/NS100ML IV SCH ×2 (15:57→20:19)
[2021-03-02] MEDS: ZIPRASIDONE MESYLATE 20 MG/VIAL IM SCH (19:05)
[2021-03-02] MEDS: LEVOFLOXACIN 500 MG TABLET PO SCH (20:10)
[2021-03-02] MEDS: FUROSEMIDE 20MG VIAL IV SCH (20:10)
[2021-03-02] MEDS: MIRTAZAPINE 15 MG TABLET PO SCH (20:11)
[2021-03-02] MEDS: CITALOPRAM 20 MG TABLET PO SCH (20:12)
[2021-03-02] MEDS: INSULIN GLARGINE 100 UNITS/ML 10 ML VIAL SQ SCH (20:16)
[2021-03-02] MEDS ORDERED: CLINIMIX-E 5%AA /D15%W 2000ML 2,000 ML IV SCH (21:00)
[2021-03-03] VITALS (79 sets, daily range): BP systolic 84–136; BP diastolic 40–93
[2021-03-03] MEDS: INSULIN LISPRO 100 UNIT/ML 3ML SQ SCH ×6 (01:01→21:14)
[2021-03-03] MEDS: PHENYLEPHRINE HCL 100 MG in 0.9% NACL 250ML 250 ML IV SCH ×2 (01:02→22:43)
[2021-03-03] MEDS: ZOSYN 3.375GM +NS 50ML IV SCH ×3 (04:10→20:53)
[2021-03-03] MEDS: DEXMEDETOMIDINE 400MCG/NS100ML IV SCH ×3 (04:20→21:04)
[2021-03-03 04:31] LABS: HEMATOCRIT 32.6 % (36-48); MEAN CORPUSCULAR HEMOGLOBIN 29.1 pg (27.0-33.0); MEAN CORPUSCULAR HGB CONC 31.3 g/dL (32.0-36.0); MEAN CORPUSCULAR VOLUME 92.9 fL (79-99); RED BLOOD CELL COUNT(AUTO) 3.51 MIL/uL (4.00-5.50); RED CELL DISTRIBUTION WIDTH 13.4 % (11.0-15.5); WHITE BLOOD COUNT (AUTO) 13.5 K/uL (4.8-10.8)
[2021-03-03 04:43] LABS: CREATININE 0.9 mg/dL (0.5-1.5); POTASSIUM 3.8 mmol/L (3.5-5.1)
[2021-03-03] MEDS: IPRATROPIUM/ALBUTEROL SULFATE 3 ML SOLUTION IH SCH ×4 (07:01→23:24)
[2021-03-03] MEDS: POLYETHYLENE GLYCOL 3350 17 GM POWD.PACK PO SCH (08:44)
[2021-03-03] MEDS: FUROSEMIDE 20MG VIAL IV SCH ×2 (08:45→21:02)
[2021-03-03] MEDS: MIDODRINE HCL 5 MG TABLET PO SCH ×3 (08:45→21:02)
[2021-03-03] MEDS: ACETAMINOPHEN 325 MG TAB PO PRN (08:45)
[2021-03-03] MEDS: AZITHROMYCIN 250 MG TABLET PO SCH (08:45)
[2021-03-03] MEDS: PANTOPRAZOLE 40 MG TAB DR PO SCH (08:45)
[2021-03-03] MEDS: SOLU-MEDROL 40MG VIAL IVP SCH ×2 (08:46→20:53)
[2021-03-03] MEDS: POTASSIUM CHLORIDE 10% ELIXIR 20 MEQ/15 ML UDCUP PO PRN (08:46)
[2021-03-03] MEDS: **HM** DICLOFENAC 75MG PO SCH ×2 (08:46→21:00)
[2021-03-03] MEDS: TAMSULOSIN HCL 0.4 MG CAP.ER.24H PO SCH (08:46)
[2021-03-03] MEDS: PREGABALIN 75 MG CAPSULE PO SCH ×2 (08:46→21:02)
[2021-03-03] MEDS: ALPRAZOLAM 0.25 MG TABLET PO SCH ×2 (08:48→21:02)
[2021-03-03] MEDS: FLUDROCORTISONE ACETATE 0.1 MG TABLET PO SCH (13:06)
[2021-03-03] MEDS: MIRTAZAPINE 15 MG TABLET PO SCH (20:53)
[2021-03-03] MEDS: CITALOPRAM 20 MG TABLET PO SCH (21:01)
[2021-03-03] MEDS: LEVOFLOXACIN 500 MG TABLET PO SCH (21:03)
[2021-03-03] MEDS: INSULIN GLARGINE 100 UNITS/ML 10 ML VIAL SQ SCH (21:06)
[2021-03-04] VITALS (23 sets, daily range): BP systolic 105–136; BP diastolic 49–87
[2021-03-04] MEDS: INSULIN LISPRO 100 UNIT/ML 3ML SQ SCH ×7 (04:11→23:59)
[2021-03-04] MEDS: ZOSYN 3.375GM +NS 50ML IV SCH ×3 (04:12→21:09)
[2021-03-04] MEDS: ACETAMINOPHEN 325 MG TAB PO PRN ×2 (05:06→14:37)
[2021-03-04] MEDS: DEXMEDETOMIDINE 400MCG/NS100ML IV SCH (05:07)
[2021-03-04] MEDS: IPRATROPIUM/ALBUTEROL SULFATE 3 ML SOLUTION IH SCH ×4 (06:49→23:28)
[2021-03-04 06:53] LABS: BASOPHILS % (AUTO) 0.2 % (0.0-5.0); EOSINOPHILS % (AUTO) 0.7 % (0.0-8.0); LYMPHOCYTES % (AUTO) 13.9 % (21.0-51.0); MEAN CORPUSCULAR HEMOGLOBIN 29.2 pg (27.0-33.0); MEAN CORPUSCULAR HGB CONC 31.5 g/dL (32.0-36.0); MEAN CORPUSCULAR VOLUME 92.7 fL (79-99); MONOCYTES % (AUTO) 5.8 % (3.0-13.0); NEUTROPHILS % (AUTO) 77.8 % (40.0-77.0); PLATELET COUNT (AUTO) 374 K/uL (130-400); RED BLOOD CELL COUNT(AUTO) 3.56 MIL/uL (4.00-5.50); RED CELL DISTRIBUTION WIDTH 13.6 % (11.0-15.5); WHITE BLOOD COUNT (AUTO) 12.2 K/uL (4.8-10.8)
[2021-03-04 07:08] LABS: ABG BASE EXCESS 2.8 mmol/L (-2.0-3.0); ABG HCO3 25.2 mmol/L (21.0-28.0); ABG OXYGEN SATURATION 96.7 % (95.0-99.0); ABG PCO2 32 mmHg (32-45)
[2021-03-04 07:14] LABS: POTASSIUM 3.7 mmol/L (3.5-5.1)
[2021-03-04] MEDS: POLYETHYLENE GLYCOL 3350 17 GM POWD.PACK PO SCH (07:37)
[2021-03-04] MEDS: SOLU-MEDROL 40MG VIAL IVP SCH (08:57)
[2021-03-04] MEDS: FUROSEMIDE 20MG VIAL IV SCH ×2 (08:57→21:09)
[2021-03-04] MEDS: ALPRAZOLAM 0.25 MG TABLET PO SCH ×2 (08:57→21:11)
[2021-03-04] MEDS: PREGABALIN 75 MG CAPSULE PO SCH ×2 (08:57→21:10)
[2021-03-04] MEDS: PANTOPRAZOLE 40 MG TAB DR PO SCH (08:58)
[2021-03-04] MEDS: MIDODRINE HCL 5 MG TABLET PO SCH ×3 (08:58→21:10)
[2021-03-04] MEDS: AZITHROMYCIN 250 MG TABLET PO SCH (08:58)
[2021-03-04] MEDS: TAMSULOSIN HCL 0.4 MG CAP.ER.24H PO SCH (09:00)
[2021-03-04] MEDS: **HM** DICLOFENAC 75MG PO SCH ×2 (09:00→21:00)
[2021-03-04] MEDS: FLUDROCORTISONE ACETATE 0.1 MG TABLET PO SCH (11:53)
[2021-03-04] MEDS: PHENYLEPHRINE HCL 100 MG in 0.9% NACL 250ML 250 ML IV SCH (14:08)
[2021-03-04] MEDS ORDERED: SOLU-MEDROL 40MG VIAL IVP SCH (21:00)
[2021-03-04] MEDS: LEVOFLOXACIN 500 MG TABLET PO SCH (21:10)
[2021-03-04] MEDS: CITALOPRAM 20 MG TABLET PO SCH (21:11)
[2021-03-04] MEDS: MIRTAZAPINE 15 MG TABLET PO SCH (21:11)
[2021-03-04] MEDS: INSULIN GLARGINE 100 UNITS/ML 10 ML VIAL SQ SCH (21:13)
[2021-03-05] VITALS (36 sets, daily range): BP systolic 83–147; BP diastolic 40–88
[2021-03-05] MEDS: ACETAMINOPHEN 325 MG TAB PO PRN (01:04)
[2021-03-05] MEDS: INSULIN LISPRO 100 UNIT/ML 3ML SQ SCH ×6 (04:00→23:41)
[2021-03-05 04:13] LABS: BASOPHILS % (AUTO) 0.3 % (0.0-5.0); EOSINOPHILS % (AUTO) 0.2 % (0.0-8.0); HEMATOCRIT 37.3 % (36-48); LYMPHOCYTES % (AUTO) 8.5 % (21.0-51.0); MEAN CORPUSCULAR HGB CONC 30.3 g/dL (32.0-36.0); MEAN CORPUSCULAR VOLUME 95.6 fL (79-99); NEUTROPHILS % (AUTO) 82.3 % (40.0-77.0); PLATELET COUNT (AUTO) 366 K/uL (130-400); WHITE BLOOD COUNT (AUTO) 15.5 K/uL (4.8-10.8)
[2021-03-05 04:22] LABS: POTASSIUM 3.6 mmol/L (3.5-5.1)
[2021-03-05] MEDS: ZOSYN 3.375GM +NS 50ML IV SCH ×3 (04:53→20:27)
[2021-03-05] MEDS: IPRATROPIUM/ALBUTEROL SULFATE 3 ML SOLUTION IH SCH ×4 (06:53→23:16)
[2021-03-05] MEDS ORDERED: ALBUMIN (HUMAN) 5% 500 ML IV SCH (08:30)
[2021-03-05] MEDS: **HM** DICLOFENAC 75MG PO SCH ×2 (09:00→20:29)
[2021-03-05] MEDS: FUROSEMIDE 20MG VIAL IV SCH (09:00)
[2021-03-05] MEDS: SOLU-MEDROL 40MG VIAL IVP SCH ×2 (09:14→20:31)
[2021-03-05] MEDS: AZITHROMYCIN 250 MG TABLET PO SCH (09:15)
[2021-03-05] MEDS: PREGABALIN 75 MG CAPSULE PO SCH ×2 (09:15→20:29)
[2021-03-05] MEDS: PANTOPRAZOLE 40 MG TAB DR PO SCH (09:15)
[2021-03-05] MEDS: ALPRAZOLAM 0.25 MG TABLET PO SCH ×2 (09:15→20:28)
[2021-03-05] MEDS: POLYETHYLENE GLYCOL 3350 17 GM POWD.PACK PO SCH (09:15)
[2021-03-05] MEDS: MIDODRINE HCL 5 MG TABLET PO SCH ×3 (09:15→20:28)
[2021-03-05] MEDS: FLUDROCORTISONE ACETATE 0.1 MG TABLET PO SCH (12:45)
[2021-03-05] MEDS: CITALOPRAM 20 MG TABLET PO SCH (20:28)
[2021-03-05] MEDS: LEVOFLOXACIN 500 MG TABLET PO SCH (20:29)
[2021-03-05] MEDS: MIRTAZAPINE 15 MG TABLET PO SCH (20:32)
[2021-03-05] MEDS: INSULIN GLARGINE 100 UNITS/ML 10 ML VIAL SQ SCH (20:34)
[2021-03-06] VITALS (34 sets, daily range): BP systolic 91–141; BP diastolic 40–70
[2021-03-06] MEDS: INSULIN LISPRO 100 UNIT/ML 3ML SQ SCH ×3 (03:55→17:47)
[2021-03-06 04:03] LABS: BASOPHILS % (AUTO) 0.1 % (0.0-5.0); EOSINOPHILS % (AUTO) 0.3 % (0.0-8.0); HEMATOCRIT 31.9 % (36-48); LYMPHOCYTES % (AUTO) 10.7 % (21.0-51.0); MEAN CORPUSCULAR HEMOGLOBIN 29.1 pg (27.0-33.0); MEAN CORPUSCULAR HGB CONC 29.8 g/dL (32.0-36.0); MEAN CORPUSCULAR VOLUME 97.9 fL (79-99); MONOCYTES % (AUTO) 4.9 % (3.0-13.0); NEUTROPHILS % (AUTO) 82.8 % (40.0-77.0); PLATELET COUNT (AUTO) 256 K/uL (130-400); RED BLOOD CELL COUNT(AUTO) 3.26 MIL/uL (4.00-5.50); WHITE BLOOD COUNT (AUTO) 7.5 K/uL (4.8-10.8)
[2021-03-06] MEDS: ZOSYN 3.375GM +NS 50ML IV SCH ×3 (04:07→20:17)
[2021-03-06 04:13] LABS: CREATININE 0.7 mg/dL (0.5-1.5); POTASSIUM 3.2 mmol/L (3.5-5.1)
[2021-03-06] MEDS: POTASSIUM CHLORIDE 10% ELIXIR 20 MEQ/15 ML UDCUP PO PRN ×2 (05:32→18:13)
[2021-03-06] MEDS: IPRATROPIUM/ALBUTEROL SULFATE 3 ML SOLUTION IH SCH ×3 (06:24→18:10)
[2021-03-06] MEDS: SOLU-MEDROL 40MG VIAL IVP SCH ×2 (08:19→20:17)
[2021-03-06] MEDS: MIDODRINE HCL 5 MG TABLET PO SCH ×3 (08:23→20:19)
[2021-03-06] MEDS: ALPRAZOLAM 0.25 MG TABLET PO SCH ×2 (08:23→20:15)
[2021-03-06] MEDS: PANTOPRAZOLE 40 MG TAB DR PO SCH (08:24)
[2021-03-06] MEDS: PREGABALIN 75 MG CAPSULE PO SCH ×2 (08:24→20:16)
[2021-03-06] MEDS: POLYETHYLENE GLYCOL 3350 17 GM POWD.PACK PO SCH (08:31)
[2021-03-06] MEDS: **HM** DICLOFENAC 75MG PO SCH ×2 (08:31→20:17)
[2021-03-06] MEDS: ALBUMIN (HUMAN) 5% 250 ML IV SCH ×2 (09:44→10:54)
[2021-03-06] MEDS ORDERED: INSULIN LISPRO 100 UNIT/ML 3ML SQ SCH (11:30)
[2021-03-06] MEDS: FLUDROCORTISONE ACETATE 0.1 MG TABLET PO SCH (12:54)
[2021-03-06] MEDS: CLINIMIX-E4.25%AA/D5+LYT2000ML 2,000 ML IV NR (13:05)
[2021-03-06 16:55] LABS: ABG BASE EXCESS 2.1 mmol/L (-2.0-3.0); ABG HCO3 24.3 mmol/L (21.0-28.0); ABG OXYGEN SATURATION 92.4 % (95.0-99.0); ABG PCO2 31 mmHg (32-45)
[2021-03-06] MEDS ORDERED: FUROSEMIDE 40MG VIAL IV ONE (17:30)
[2021-03-06] MEDS: MIRTAZAPINE 15 MG TABLET PO SCH (20:15)
[2021-03-06] MEDS: CITALOPRAM 20 MG TABLET PO SCH (20:15)
[2021-03-06] MEDS: INSULIN GLARGINE 100 UNITS/ML 10 ML VIAL SQ SCH (20:15)
[2021-03-06] MEDS: ONDANSETRON 4MG INJ IVP PRN (20:16)
[2021-03-07] VITALS (44 sets, daily range): BP systolic 84–135; BP diastolic 39–64
[2021-03-07] MEDS: INSULIN LISPRO 100 UNIT/ML 3ML SQ SCH ×4 (00:29→17:29)
[2021-03-07] MEDS: ACETAMINOPHEN 325 MG TAB PO PRN (02:56)
[2021-03-07 04:28] LABS: BASOPHILS % (AUTO) 0.1 % (0.0-5.0); EOSINOPHILS % (AUTO) 0.8 % (0.0-8.0); HEMATOCRIT 27.8 % (36-48); MEAN CORPUSCULAR HEMOGLOBIN 29.5 pg (27.0-33.0); MEAN CORPUSCULAR HGB CONC 30.6 g/dL (32.0-36.0); MEAN CORPUSCULAR VOLUME 96.5 fL (79-99); MONOCYTES % (AUTO) 6.8 % (3.0-13.0); NEUTROPHILS % (AUTO) 81.3 % (40.0-77.0); PLATELET COUNT (AUTO) 226 K/uL (130-400); RED BLOOD CELL COUNT(AUTO) 2.88 MIL/uL (4.00-5.50); RED CELL DISTRIBUTION WIDTH 14.4 % (11.0-15.5); WHITE BLOOD COUNT (AUTO) 7.7 K/uL (4.8-10.8)
[2021-03-07 04:58] LABS: CREATININE 0.8 mg/dL (0.5-1.5); POTASSIUM 3.9 mmol/L (3.5-5.1)
[2021-03-07] MEDS: ZOSYN 3.375GM +NS 50ML IV SCH (05:46)
[2021-03-07] MEDS: IPRATROPIUM/ALBUTEROL SULFATE 3 ML SOLUTION IH SCH ×3 (06:05→19:53)
[2021-03-07] MEDS: ALPRAZOLAM 0.25 MG TABLET PO SCH ×2 (08:05→20:39)
[2021-03-07] MEDS: PANTOPRAZOLE 40 MG TAB DR PO SCH (08:05)
[2021-03-07] MEDS: PREGABALIN 75 MG CAPSULE PO SCH ×2 (08:05→20:39)
[2021-03-07] MEDS: **HM** DICLOFENAC 75MG PO SCH ×2 (08:09→20:39)
[2021-03-07] MEDS: MIDODRINE HCL 5 MG TABLET PO SCH ×3 (08:09→20:39)
[2021-03-07] MEDS ORDERED: SOLU-MEDROL 40MG VIAL IVP SCH (09:00)
[2021-03-07] MEDS: CLINIMIX-E4.25%AA/D5+LYT2000ML 2,000 ML IV NR (09:07)
[2021-03-07] MEDS: FLUDROCORTISONE ACETATE 0.1 MG TABLET PO SCH (12:00)
[2021-03-07] MEDS: MIRTAZAPINE 15 MG TABLET PO SCH (20:39)
[2021-03-07] MEDS: CITALOPRAM 20 MG TABLET PO SCH (20:39)
[2021-03-07] MEDS: INSULIN GLARGINE 100 UNITS/ML 10 ML VIAL SQ SCH (20:41)
[2021-03-08] VITALS (30 sets, daily range): BP systolic 93–124; BP diastolic 35–61
[2021-03-08] MEDS: IPRATROPIUM/ALBUTEROL SULFATE 3 ML SOLUTION IH SCH ×5 (00:02→23:29)
[2021-03-08] MEDS: INSULIN LISPRO 100 UNIT/ML 3ML SQ SCH ×5 (00:44→20:08)
[2021-03-08 03:42] LABS: BASOPHILS % (AUTO) 0.1 % (0.0-5.0); EOSINOPHILS % (AUTO) 4.3 % (0.0-8.0); HEMATOCRIT 28.8 % (36-48); MEAN CORPUSCULAR HEMOGLOBIN 29.5 pg (27.0-33.0); MEAN CORPUSCULAR HGB CONC 30.6 g/dL (32.0-36.0); MEAN CORPUSCULAR VOLUME 96.6 fL (79-99); MONOCYTES % (AUTO) 7.3 % (3.0-13.0); NEUTROPHILS % (AUTO) 73.6 % (40.0-77.0); PLATELET COUNT (AUTO) 208 K/uL (130-400); RED BLOOD CELL COUNT(AUTO) 2.98 MIL/uL (4.00-5.50); RED CELL DISTRIBUTION WIDTH 14.1 % (11.0-15.5); WHITE BLOOD COUNT (AUTO) 8.9 K/uL (4.8-10.8)
[2021-03-08 04:03] LABS: CREATININE 0.5 mg/dL (0.5-1.5); POTASSIUM 3.5 mmol/L (3.5-5.1)
[2021-03-08] MEDS: ALPRAZOLAM 0.25 MG TABLET PO SCH ×2 (08:27→19:51)
[2021-03-08] MEDS: PREGABALIN 75 MG CAPSULE PO SCH ×2 (08:27→19:51)
[2021-03-08] MEDS: PANTOPRAZOLE 40 MG TAB DR PO SCH (08:27)
[2021-03-08] MEDS: MIDODRINE HCL 5 MG TABLET PO SCH ×3 (08:27→19:51)
[2021-03-08] MEDS: **HM** DICLOFENAC 75MG PO SCH ×2 (08:30→19:08)
[2021-03-08] MEDS ORDERED: SOLU-MEDROL 40MG VIAL IVP SCH (09:00)
[2021-03-08] MEDS: FLUDROCORTISONE ACETATE 0.1 MG TABLET PO SCH ×2 (11:38→14:17)
[2021-03-08] MEDS: MIRTAZAPINE 15 MG TABLET PO SCH (19:51)
[2021-03-08] MEDS: CITALOPRAM 20 MG TABLET PO SCH (19:51)
[2021-03-08] MEDS: INSULIN GLARGINE 100 UNITS/ML 10 ML VIAL SQ SCH (19:53)
[2021-03-08] MEDS ORDERED: CLINIMIX-E 5%AA /D15%W 2000ML 2,000 ML IV SCH (22:00)
[2021-03-09] VITALS (19 sets, daily range): BP systolic 76–125; BP diastolic 44–61
[2021-03-09 04:15] LABS: BASOPHILS % (AUTO) 0.2 % (0.0-5.0); EOSINOPHILS % (AUTO) 5.1 % (0.0-8.0); HEMATOCRIT 31.1 % (36-48); LYMPHOCYTES % (AUTO) 14.4 % (21.0-51.0); MEAN CORPUSCULAR HEMOGLOBIN 29.3 pg (27.0-33.0); MEAN CORPUSCULAR HGB CONC 29.9 g/dL (32.0-36.0); MEAN CORPUSCULAR VOLUME 98.1 fL (79-99); MONOCYTES % (AUTO) 6.1 % (3.0-13.0); NEUTROPHILS % (AUTO) 73.5 % (40.0-77.0); PLATELET COUNT (AUTO) 219 K/uL (130-400); RED BLOOD CELL COUNT(AUTO) 3.17 MIL/uL (4.00-5.50); RED CELL DISTRIBUTION WIDTH 13.8 % (11.0-15.5); WHITE BLOOD COUNT (AUTO) 10.2 K/uL (4.8-10.8)
[2021-03-09 04:19] LABS: CREATININE 0.5 mg/dL (0.5-1.5); POTASSIUM 3.6 mmol/L (3.5-5.1)
[2021-03-09] MEDS: INSULIN LISPRO 100 UNIT/ML 3ML SQ SCH ×3 (06:15→16:30)
[2021-03-09] MEDS: POTASSIUM CHLORIDE 10% ELIXIR 20 MEQ/15 ML UDCUP PO PRN ×2 (06:16→08:30)
[2021-03-09] MEDS: IPRATROPIUM/ALBUTEROL SULFATE 3 ML SOLUTION IH SCH ×3 (06:37→19:04)
[2021-03-09] MEDS: MIDODRINE HCL 5 MG TABLET PO SCH ×2 (08:31→14:34)
[2021-03-09] MEDS: PANTOPRAZOLE 40 MG TAB DR PO SCH (08:31)
[2021-03-09] MEDS: PREGABALIN 75 MG CAPSULE PO SCH (08:31)
[2021-03-09] MEDS: ALPRAZOLAM 0.25 MG TABLET PO SCH (08:31)
[2021-03-09] MEDS: **HM** DICLOFENAC 75MG PO SCH (08:46)
[2021-03-09] MEDS: FLUDROCORTISONE ACETATE 0.1 MG TABLET PO SCH (12:28)
== END 2021-03-09 20:25 | DRG 163 ==
LOC: DAHIP 02-16 06:30 → EDSTATUS 02-16 08:00 → 2CH 02-16 11:20 → 2DH 02-18 19:00 → 2CH 02-25 14:16
PROVIDERS: ADMIT Internal Medicine; ATTEND Internal Medicine
PROC: 0BBG0ZZ Excision of Left Upper Lung Lobe, Open Approach (ICD-10-PCS; principal; 2021-02-16 08:00)
PROC: 0W9B30Z Drainage of Left Pleural Cavity with Drainage Device, Percutaneous Approach (ICD-10-PCS; 2021-02-23)
PROC: 5A09357 Assistance with Respiratory Ventilation, Less than 24 Consecutive Hours, Continuous Positive Airway Pressure (ICD-10-PCS; 2021-02-26)
PROC: 0D9670Z Drainage of Stomach with Drainage Device, Via Natural or Artificial Opening (ICD-10-PCS; 2021-02-26)
PROC: 5A09457 Assistance with Respiratory Ventilation, 24-96 Consecutive Hours, Continuous Positive Airway Pressure (ICD-10-PCS; 2021-02-27)
PROC: 5A0945A Assistance with Respiratory Ventilation, 24-96 Consecutive Hours, High Flow/Velocity Cannula (ICD-10-PCS; 2021-03-01)
PROC: 02HV33Z Insertion of Infusion Device into Superior Vena Cava, Percutaneous Approach (ICD-10-PCS; 2021-03-04)
PROC: 5A0935A Assistance with Respiratory Ventilation, Less than 24 Consecutive Hours, High Flow/Velocity Cannula (ICD-10-PCS; 2021-03-07)
DX: A31.0 Pulmonary mycobacterial infection (principal); A41.9 Sepsis, unspecified organism; G93.41 Metabolic encephalopathy; J80 Acute respiratory distress syndrome; R65.21 Severe sepsis with septic shock; J95.2 Acute pulmonary insufficiency following nonthoracic surgery; E87.1 Hypo-osmolality and hyponatremia; K56.609 Unspecified intestinal obstruction, unspecified as to partial versus complete obstruction; K56.7 Ileus, unspecified; R17 Unspecified jaundice; Z68.1 Body mass index [BMI] 19.9 or less, adult; J93.9 Pneumothorax, unspecified; Z20.822 Contact with and (suspected) exposure to COVID-19; D64.9 Anemia, unspecified; E11.40 Type 2 diabetes mellitus with diabetic neuropathy, unspecified; E78.00 Pure hypercholesterolemia, unspecified; E78.5 Hyperlipidemia, unspecified; F41.9 Anxiety disorder, unspecified; I11.0 Hypertensive heart disease with heart failure; I50.9 Heart failure, unspecified; J18.9 Pneumonia, unspecified organism; J43.9 Emphysema, unspecified; J84.10 Pulmonary fibrosis, unspecified; L89.151 Pressure ulcer of sacral region, stage 1; M32.9 Systemic lupus erythematosus, unspecified; N19 Unspecified kidney failure; R13.12 Dysphagia, oropharyngeal phase; R50.82 Postprocedural fever; R53.81 Other malaise; R62.7 Adult failure to thrive; Y95 Nosocomial condition; Z66 Do not resuscitate; Z74.01 Bed confinement status; Z79.4 Long term (current) use of insulin; Z79.52 Long term (current) use of systemic steroids; Z79.899 Other long term (current) drug therapy; Z90.49 Acquired absence of other specified parts of digestive tract; Z83.3 Family history of diabetes mellitus
CPT/HCPCS: 36415; 36600; 71045; 71046; 71250; 74018; 74176; 75989; 76700; 77012; 80048; 80053; 80076; 80202; 81001; 82150; 82435; 82533; 82803; 82947; 82948; 83605; 83690; 83735; 83880; 84132; 84295; 85018; 85025; 85027; 85610; 85730; 86850; 86900; 86901; 87040; 87071; 87088; 87205; 87635; 88309; 88312; 92610; 93005; 94640; 94660; 94664; 94667; 94668; 97039; A4344; A7048; C1894; G0378; J0171; J0690; J1100; J1170; J1250; J1265; J1644; J1815; J1885; J1940; J2001; J2060; J2250; J2370; J2405; J2543; J2704; J2710; J2720; J2765; J2920; J3010; J3370; J3475; J3480; J3486; J3490; J7030; J7040; J7042; J7050; J7120; J7512; P9045; Q9963